=== PATIENT | male | born 1955 | race Caucasian/White ===

== ENCOUNTER 2017-08-24 00:12 | Inpatient (IN) | payer BC ==
[2017-08-24] MEDS ORDERED: Ondansetron ODT TAB* 4 MG ONE ×2 (00:18→13:11)
[2017-08-24] MEDS ORDERED: Ondansetron ODT TAB* 4 MG PO ONE (00:20)
[2017-08-24 01:22] LABS: ABS Basophils 0.1 10^3/ul (0-0.2); ABS Eosinophils 0 10^3/ul (0-0.6); ABS Lymphocytes 0.7 10^3/ul (1.0-4.8); ABS Monocytes 0.7 10^3/ul (0-0.8); ABS Neutrophils 9.7 10^3/ul (1.5-7.7); ABS Nucleated RBC 0 10^3/ul; Eosinophil % 0.3 % (0-6); Hematocrit 50 % (42-52); Hemoglobin 16.8 g/dl (14.0-18.0); Lymphocyte % 6.2 % (25-47); Mean Corpuscular HGB Conc 34 g/dl (31-36); Mean Corpuscular Hemoglobin 33 pg (27-31); Mean Corpuscular Volume 96 fL (80-94); Mean Platelet Volume 8.6 um3 (7.4-10.4); Nucleated Red Blood Cells % 0.1; Platelet Count 257 10^3/ul (150-450); Red Blood Count 5.17 10^6/ul (4.00-5.40); Red Cell Distribution Width 14 % (10.5-15); White Blood Count 11.3 10^3/ul (3.5-10.8)
[2017-08-24 01:42] LABS: EGFR Non-African American 73.2 (>60)
[2017-08-24] MEDS ORDERED: Morphine VIAL* 4 MG/ML VIAL (1 ml vial) IV ONE (02:03)
[2017-08-24] MEDS ORDERED: Ondansetron INJ* 2 MG/ML VIAL IV ONE (02:04)
[2017-08-24] MEDS ORDERED: NS 0.9% 1000 ML* 1,000 ML IV ONE (02:46)
[2017-08-24] MEDS ORDERED: fentaNYL* 50 MCG/ML 2 ML VIAL (100 MCG VIAL) IV ONE (02:46)
[2017-08-24] MEDS ORDERED: Piperacillin/Tazobac ADVAN(*) 3.375 GM in NS 0.9% 100 ML* 100 ML IVPB ONE (02:51)
[2017-08-24] MEDS ORDERED: Ondansetron 40 MG VIAL* 2 MG/ML 20 ML VIAL IV PRN ×2 (03:37→16:42)
[2017-08-24] MEDS ORDERED: NS 0.9% 1000 ML* 1,000 ML IV SCH ×2 (03:45→08:47)
[2017-08-24] MEDS ORDERED: HYDROmorphone INJ* 0.5 MG/0.5 ML SYRINGE IV SLOW PU PRN ×2 (05:03→12:13)
[2017-08-24] MEDS ORDERED: HYDROmorphone INJ* 2 MG/ML CARPUJECT SYRINGE ONE (05:12)
[2017-08-24] MEDS ORDERED: HYDROmorphone INJ* 2 MG/ML CARPUJECT SYRINGE IV SLOW PU PRN (05:31)
--- NOTE | 2017-08-24 08:35 | RAD ---
INDICATION: Right upper quadrant pain COMPARISON: CTA May 28, 2014 TECHNIQUE: Noncontrast axial source images were obtained from the hemidiaphragms to the symphysis pubis. This examination was ordered using a renal stone protocol which is performed without oral or intravenous contrast and therefore has inherent limitations when used to evaluate other intra-abdominal or intrapelvic pathology. Lung bases: The lung bases are clear. Liver: The liver is normal in size. Noncontrast imaging shows no evidence of a hepatic mass or ductal dilatation. Gallbladder: There are no calcified gallstones. There is no evidence of wall thickening or pericholecystic fluid.. Spleen: The spleen is normal in size. The noncontrast CT appearance is normal. Pancreas: There are extensive pancreatic consultations compatible with chronic pancreatitis. Adrenal glands: No masses are identified. Kidneys/Bladder: The lower elwha kidneys are markedly atrophic bilaterally. There is a transplanted kidney in the right iliac fossa. Adenopathy: There is no evidence of intraperitoneal or retroperitoneal adenopathy. Evaluation is limited without oral contrast. Fluid collections: Small amount of ascites. Vessels: There are advanced atherosclerotic changes of the aorta and iliac vessels. There is no focal aneurysm. The IVC appears normal Pelvic organs: The prostate is enlarged GI tract: Limited evaluation without oral contrast. Multiple mildly prominent loops of small bowel. There may be an early or partial small bowel obstruction. There is air within a normal caliber colon. Evidence of sigmoid resection There are scant diverticula. Soft tissues: No soft tissue abnormalities of the extraperitoneal abdomen or pelvis are identified. Osseous structures: There are no acute osseous findings. IMPRESSION: Possible early or partial small bowel obstruction. Chronic pancreatitis. Right renal transplant right iliac fossa.
[2017-08-24] MEDS: Metoprolol Tartrate IV* 1 MG/ML 5 ML VIAL IV PRN ×2 (08:54→20:00)
[2017-08-24] MEDS: methylPREDNISolone SOD 40 MG* 1 ML VIAL IV SCH ×2 (08:54→19:59)
[2017-08-24] MEDS ORDERED: TACROLIMUS PO SCH (09:15)
[2017-08-24] MEDS: HYDROmorphone INJ* 2 MG/ML CARPUJECT SYRINGE IV SLOW PU PRN ×2 (09:42→12:04)
[2017-08-24] MEDS ORDERED: ceFAZolin 1 GM VIAL(*) 2 GM in NS 0.9% 100 ML* 100 ML IVPB ONE (09:53)
[2017-08-24 09:58] LABS: ABS Basophils 0.1 10^3/ul (0-0.2); ABS Eosinophils 0 10^3/ul (0-0.6); ABS Lymphocytes 0.1 10^3/ul (1.0-4.8); ABS Monocytes 0.7 10^3/ul (0-0.8); ABS Neutrophils 11.7 10^3/ul (1.5-7.7); ABS Nucleated RBC 0 10^3/ul; Eosinophil % 0 % (0-6); Hematocrit 49 % (42-52); Hemoglobin 16.3 g/dl (14.0-18.0); Lymphocyte % 1.2 % (25-47); Mean Corpuscular HGB Conc 33 g/dl (31-36); Mean Corpuscular Hemoglobin 32 pg (27-31); Mean Corpuscular Volume 98 fL (80-94); Mean Platelet Volume 8.1 um3 (7.4-10.4); Nucleated Red Blood Cells % 0.1; Platelet Count 257 10^3/ul (150-450); Red Blood Count 5.07 10^6/ul (4.00-5.40); Red Cell Distribution Width 14 % (10.5-15); White Blood Count 12.7 10^3/ul (3.5-10.8)
--- NOTE | 2017-08-24 10:04 | CONS ---
CC: [facility]; Dr. Macho King; Dr. Johny Madison; Dr. Lorena Funk. * SURGICAL CONSULTATION REPORT: DATE OF CONSULT: 08/24/17 HISTORY OF PRESENT ILLNESS: Mr. Alvarado is a 62-year-old gentleman known to me after undergoing a Ren's procedure with subsequent reversal many years ago for perforated diverticulitis. The patient has endstage renal disease, status post transplant from his , that has been functioning well. The patient had acute onset of pain at approximately 10 p.m. last night, it woke him up from sleep. He had significant violent vomiting soon thereafter, the pain persisted and the patient presented to the emergency room. In the emergency room, the patient did undergo workup including labs and a CT scan. His pain was difficult to control and finally with narcotics on board, the patient is starting to feel more comfortable. An NG tube was placed with minimal output. The patient denies any previous similar symptoms. The pain is mostly in the lower abdomen. It is worse with movement. The patient has been urinating. His last bowel movement was yesterday. He has not had flatus since the onset of systems last night. The patient has had brief episodes of hiccups. PAST MEDICAL HISTORY: Hypertension. Endstage renal, he is status post transplant; the patient is on anti-rejection medications. Abdominal surgeries as described. MEDICATIONS: Medication list reviewed. ALLERGIES: No known drug allergies, but does not tolerate oral and IV contrast. REVIEW OF SYSTEMS: He is a nonsmoker. 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 He has fair exercise tolerance. Since receiving the kidney transplant he has been able to do much more and he is not easily fatigued. PHYSICAL EXAM: He is afebrile, blood pressure is 171/76, heart rate was in 80s for much of his hospitalization until recently, 121 heart rate measured at 7:45 today. NG tube is none. Urine output has been 400 mL since coming to the floor. He is alert and oriented x3, in mild distress. Lungs are clear at the apices. Abdomen is distended, firm at the lower abdomen and softer at the epigastrium where he is less tender. Hypoactive bowel sounds. No hernias noted. Rectal exam was not performed. Extremities within normal limits. DIAGNOSTIC STUDIES/LAB DATA: Labs show white count of 11, with left shift. Chemistry panel with an elevated lactate of 3.1, potassium 3.7, BUN and creatinine ratio of 15, normal CRP. CT scan reviewed. Images report states possible earlier or partial small bowel obstruction with multiple mildly prominent loops of small bowel. Air in the colon. Small amount of ascites, but no free air. IMPRESSION: Acute onset of abdominal pain with tenderness and distension at the lower abdomen. Differential diagnoses include small bowel obstruction secondary to adhesions versus an ischemic bowel issue. I have recommended exploratory laparotomy to the patient, going over the risks, benefits and alternative. He wishes to proceed in this fashion. We spoke about the possibility of global ischemia to the bowel and inability to do anything. The patient understands this. His questions were answered. He also understands that it would be likely my partner doing the procedure. I discussed the case with Nephrology, Dr. King, who recommended giving his oral anti-rejection medication now and clamping the NG tube at that time for 2 hours. The case was discussed Anesthesiology. The patient is to remain on IV fluids. We will hold off on Boone catheter until we are in the operating room. He will get preoperative antibiotics. [id number]/[facility] #: [id number] MTDD
[2017-08-24 10:13] LABS: EGFR Non-African American 81.3 (>60)
[2017-08-24] MEDS ORDERED: ceFAZolin 2 GM PREMIX (*) 2 GM/50 ML BAG IVPB ONE (10:30)
[2017-08-24 10:32] LABS: Urine Appearance Clear; Urine Blood 1+ (Negative); Urine Color Straw; Urine Ketones 1+ (Negative); Urine Protein Negative (Negative); Urine Specific Gravity 1.015 (1.010-1.030); Urine Urobilinogen Negative (Negative)
--- NOTE | 2017-08-24 10:37 | HP ---
CC: Dr. Funk; Dr. Montenegro * ADMISSION HISTORY AND PHYSICAL: DATE OF ADMISSION: 08/24/17 CHIEF COMPLAINT: Abdominal pain. HISTORY OF PRESENT ILLNESS: Mr. Alvarado is a 62-year-old man with history of bowel perforation and colectomy in 2011 who developed 10/10 periumbilical pain accompanied by vomiting at around 10 o'clock evening prior to admission. He states, the pain is constant and radiates down to his right and left groin. The patient has not had similar problems in the past. He has no history of small bowel obstruction. The patient denies any fevers, but he has felt hot and clammy off and on. The patient denies any diarrhea. 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 The patient received a renal transplant in 2014. Also has a history of diverticulitis and history of pancreatitis. He has hypertension as well and BPH. PAST SURGICAL HISTORY: Colectomy in 2011 and renal transplant in 2014. MEDICATIONS: On admission: 1. Amlodipine 10 mg p.o. daily. 2. Aspirin 81 mg p.o. daily. 3. Hydralazine 50 mg p.o. t.i.d. 4. Toprol-XL 150 mg p.o. b.i.d. 5. Mycophenolate mofetil 1000 mg p.o. b.i.d. 6. Protonix 40 mg p.o. q.a.m. 7. Prednisone 5 mg p.o. daily. 8. Simvastatin 5 mg p.o. q.p.m. 9. Tacrolimus 5 mg p.o. b.i.d. 10. Flomax 0.4 mg p.o. daily. ALLERGIES: IODINATED CONTRAST. FAMILY HISTORY: Notable for mother of CHF, father and brother both of prostate cancer. He has a twin brother who of a motor vehicle accident. 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 He is . He has 1 child from a previous marriage. His healthcare proxy is his current partner Zaria. He never smoked, alcohol, or drug use. REVIEW OF SYSTEMS: The patient denies any measured fevers. The patient denies any chest pain or palpitations. The patient denies any shortness of breath or cough. The patient denies any diarrhea, but has severe abdominal pain. Remainder of a 14-point review of systems is negative other than mentioned in HPI. PHYSICAL EXAMINATION GENERAL: He is an older man, lying in bed, looking very uncomfortable. No respiratory distress. VITAL SIGNS: Temperature is 35.5, pulse is 90, respirations 17, blood pressure is 156/59 up to 186/70, O2 sat is 100%. HEENT: Head is normocephalic and atraumatic. Sclerae anicteric. Pupils are equal, round, reactive to light and accommodation. Oropharynx is moist. No lesions. NECK: No JVD, no carotid bruits, no thyromegaly. LUNGS: Clear to auscultation and percussion bilaterally. HEART: Tachycardic. Regular with 2/6 systolic murmur that radiates to the axilla. ABDOMEN: Firm in the periumbilical region with some rebound and distention. There are absent bowel sounds throughout. No palpable masses. No hernias. NEUROLOGIC: Cranial nerves II through XII are intact. Motor strength is 4+/5 throughout. He is alert and oriented x3. SKIN: No lesions. No rashes. LABORATORY DATA: Sodium 141, potassium 3.7, chloride 104, bicarb 21, BUN 16, creatinine 1.03, glucose 265, calcium is 10.7. Lactic acid is 3.1. White count is 11.3, hemoglobin 16.8, hematocrit 40%, platelets are 257. CT abdomen and pelvis shows small bowel obstruction, a transition point present. There is also renal transplant in the right pelvis. ASSESSMENT AND PLAN: 1. A 62-year-old man with his first occurrence of small bowel obstruction likely related to scarring and adhesions from previous colectomy. At this point , the patient will be admitted to the hospital and placed on bowel rest, NG tube , and antiemetics. I am holding all of his outpatient oral medications and keeping him n.p.o. with an NG tube. I have discussed the case with Dr. Montenegro, he will be seeing the patient today for consultation. The patient does seem to have particularly distended, tender, focal obstruction and certainly may need to go to the operating room in the next 24 hours. 2. Hypertension. This has become significant but may be elevated by pain. We will give him IV metoprolol and monitor him on telemetry here on the floor. Other oral medications are held. 3. The patient has immunosuppression and this increases the risk of infection but he does not currently have any clear signs of infection. I will give him some Solu- Medrol to replace his oral prednisone that he is missing. We will need to get him back on tacrolimus and mycophenolate as soon as we can after this episode. 4. Code status is full. 5. DVT prophylaxis will be with sequential compression devices, as heparin products could delay even surgical intervention. [id number]/[facility] #: [id number] DARWIN
--- NOTE | 2017-08-24 10:39 | RAD ---
INDICATION: Evaluate for pneumonia. Small bowel obstruction COMPARISON: Chest x-ray February 06, 2013 TECHNIQUE: PA and lateral dual-energy views were obtained. FINDINGS: Bones/Soft Tissues: There are no acute bony findings. There is a nasogastric tube projected over the body the stomach. Cardiomediastinal: The cardiomediastinal silhouette is normal. Lungs: There are no infiltrates. Pleura: There are no pleural effusions. Other: None IMPRESSION: NO ACTIVE DISEASE.
[2017-08-24] MEDS: Mycophenolate Mofetil CAP(*) 250 MG PO SCH ×2 (11:09→20:37)
[2017-08-24] MEDS: Tacrolimus CAP(*) 1 MG PO SCH ×2 (11:09→20:37)
[2017-08-24] MEDS ORDERED: Dextrose 50% Syringe 50 ML* 25 GM/50 ML SYRINGE IV PUSH PRN (11:41)
[2017-08-24] MEDS ORDERED: Insulin LISPRO* 1 UNITS UNIT SUBCUT ONE (12:12)
[2017-08-24] MEDS: Insulin LISPRO* 1 UNITS UNIT SUBCUT SCH ×3 (12:16→23:53)
--- NOTE | 2017-08-24 12:50 | PN ---
Cardiology Progress Note Date of Service: 08/24/17 - CC: abdominal pain, asked to see patient for ECG pre op UGENT Cardiology Consult Pt with acute onset suprapubic/lower abdominal pain 10 PM last night. Complex PMHx including Wegners, ROE, pancreatitis, RF to transplant (2014), DM, hx perferated intestine 2012 with colostomy reversal. The patient was scheduled for surgury at 1 PM today. Pre op ECG just done, showed J point ST elevation across the precordial leads. Dextrose (D50w Syringe 50 Ml*) 12.5 gm IV PUSH .FOR FS < 60 - SS PRN PRN Reason: FS < 60 Hydromorphone HCl (Dilaudid Inj*) 0.5 mg IV SLOW PU Q1H PRN PRN Reason: PAIN Sodium Chloride (Ns 0.9% 1000 Ml*) 1,000 mls @ 150 mls/hr IV PER RATE [facility] Last Admin: 08/24/17 09:00 Dose: 150 mls/hr Insulin Human Lispro (Humalog*) 0 units SUBCUT Q6HR [facility]; Protocol Last Admin: 08/24/17 12:16 Dose: 4 units Methylprednisolone Sodium Succinate (Solu-Medrol 40 Mg) 20 mg IV BID [facility] Last Admin: 08/24/17 08:54 Dose: 20 mg Metoprolol Tartrate (Lopressor Iv*) 5 mg IV Q6H PRN PRN Reason: BLOOD PRESSURE Last Admin: 08/24/17 08:54 Dose: 5 mg Mycophenolate Mofetil (Cellcept Cap(*)) 1,000 mg PO BID [facility] Last Admin: 08/24/17 11:09 Dose: 1,000 mg Ondansetron HCl (Zofran 40 Mg Vial*) 4 mg IV Q6H PRN PRN Reason: NAUSEA Tacrolimus (Prograf Cap(*)) 1 mg PO BID [facility] Last Admin: 08/24/17 11:09 Dose: 1 mg EXAM: Temp Pulse Resp BP Pulse Ox 97.5 F 117 18 164/83 98 08/24/17 07:45 08/24/17 10:07 08/24/17 12:15 08/24/17 10:07 08/24/17 10:07 Appears uncomfortable, lying 20 degrees, no tachypnea. AAO x3, follows comands. No gross neurological abnormalities. HEENT: mucous membranes moist, no thyromegally, no increase in JVP. Skin: warm, dry, no cyanosis, no rashes. Lungs clear anteriorly and laterally. Cor: S1S2 regular, tachycardia, soft SM c/w flow murmur heard Abd: mildly distended, no bowel sounds heard by me. Ext: No edema ECG today: Sinus tachycardia, J point ST elevtion precordial leads, c/w office ECG of May 05, 2014, tachycardia new, ST's more exaggerated but not new. 2015 myoview stress test: normal perfusion, low risk ([facility]) 2014 echo: mild to moderate LVH, EF 55-60%, AV sclerosis, mild MR, trace TR, PA pressure 32 mmHg (normal) (Dr Norman interpreted). Laboratory Results - last 24 hr 08/24/17 08/24/17 08/24/17 01:02 01:02 01:02 WBC 11.3 H RBC 5.17 Hgb 16.8 Hct 50 MCV 96 H MCH 33 H MCHC 34 RDW 14 Plt Count 257 MPV 8.6 Neut % (Auto) 86.6 H Lymph % (Auto) 6.2 L [place] % (Auto) 5.8 Eos % (Auto) 0.3 Baso % (Auto) 1.1 Absolute Neuts (auto) 9.7 H Absolute Lymphs (auto) 0.7 L Absolute Monos (auto) 0.7 Absolute Eos (auto) 0 Absolute Basos (auto) 0.1 Absolute Nucleated RBC 0 Nucleated RBC % 0.1 Sodium 141 Potassium 3.7 Chloride 104 Carbon Dioxide 21 L Anion Gap 16 H BUN 16 Creatinine 1.03 Est GFR ( Amer) 88.5 Est GFR (Non-Af Amer) 73.2 BUN/Creatinine Ratio 15.5 Glucose 265 H Lactic Acid 3.1 H* Calcium 10.7 H Total Bilirubin 0.60 AST 26 ALT 31 Alkaline Phosphatase 105 H C-Reactive Protein < 1.00 Total Protein 6.6 Albumin 4.6 Globulin 2.0 Albumin/Globulin Ratio 2.3 Lipase 36 Urine Color Urine Appearance Urine pH Ur Specific [place] Urine Protein Urine Ketones Urine Blood Urine Nitrate Urine Bilirubin Urine Urobilinogen Ur Leukocyte Esterase Urine WBC (Auto) Urine RBC (Auto) Urine Bacteria Urine Glucose 08/24/17 08/24/17 08/24/17 07:00 09:52 09:52 WBC 12.7 H RBC 5.07 Hgb 16.3 Hct 49 MCV 98 H MCH 32 H MCHC 33 RDW 14 Plt Count 257 MPV 8.1 Neut % (Auto) 92.5 H Lymph % (Auto) 1.2 L [place] % (Auto) 5.8 Eos % (Auto) 0 Baso % (Auto) 0.5 Absolute Neuts (auto) 11.7 H Absolute Lymphs (auto) 0.1 L Absolute Monos (auto) 0.7 Absolute Eos (auto) 0 Absolute Basos (auto) 0.1 Absolute Nucleated RBC 0 Nucleated RBC % 0.1 Sodium Potassium Chloride Carbon Dioxide Anion Gap BUN Creatinine Est GFR ( Amer) Est GFR (Non-Af Amer) BUN/Creatinine Ratio Glucose Lactic Acid 3.3 H* Calcium Total Bilirubin AST ALT Alkaline Phosphatase C-Reactive Protein Total Protein Albumin Globulin Albumin/Globulin Ratio Lipase Urine Color Straw Urine Appearance Clear Urine pH 5.0 Ur Specific [place] 1.015 Urine Protein Negative Urine Ketones 1+ A Urine Blood 1+ A Urine Nitrate Negative Urine Bilirubin Negative Urine Urobilinogen Negative Ur Leukocyte Esterase Negative Urine WBC (Auto) Trace(0-5/hpf) Urine RBC (Auto) 1+(3-5/hpf) A Urine Bacteria Absent Urine Glucose 3+(>=500 mg/dl) A 08/24/17 09:52 WBC RBC Hgb Hct MCV MCH MCHC RDW Plt Count MPV Neut % (Auto) Lymph % (Auto) [place] % (Auto) Eos % (Auto) Baso % (Auto) Absolute Neuts (auto) Absolute Lymphs (auto) Absolute Monos (auto) Absolute Eos (auto) Absolute Basos (auto) Absolute Nucleated RBC Nucleated RBC % Sodium 142 Potassium 3.8 Chloride 110 Carbon Dioxide 21 L Anion Gap 11 BUN 15 Creatinine 0.94 Est GFR ( Amer) 98.4 Est GFR (Non-Af Amer) 81.3 BUN/Creatinine Ratio 16.0 Glucose 305 H Lactic Acid Calcium 9.8 Total Bilirubin AST ALT Alkaline Phosphatase C-Reactive Protein 7.29 Total Protein Albumin Globulin Albumin/Globulin Ratio Lipase Urine Color Urine Appearance Urine pH Ur Specific [place] Urine Protein Urine Ketones Urine Blood Urine Nitrate Urine Bilirubin Urine Urobilinogen Ur Leukocyte Esterase Urine WBC (Auto) Urine RBC (Auto) Urine Bacteria Urine Glucose Trop # 1 = 0.05. CXR: NAD CT abdoman: c/w SBO A/P 62 yo admitted with acute abdominal process and ECG with ST changes. In reviewing his prior ECG's I don't feel the ECG represents an acute ischemia process. Mild/borderline bump in troponin after 15 hours of pain most consistent with demand type ischemia not large vessel CAD. I recommend proceeding to surgery w/o additional cardiac testing. Stabilizing abdominal process will decrease the stress on the heart. Option of luna operative beta blockers, consider post op if BP is still elevated.
[2017-08-24] MEDS ORDERED: KETAMINE HCL* 50 MG/ML 10 ML VIAL ONE (13:11)
[2017-08-24] MEDS ORDERED: Dexamethasone IV* 4 MG/ML 1 ML (4 MG) ONE (13:11)
[2017-08-24] MEDS ORDERED: Lidocaine 2% PF * 5 ML VIAL ONE (13:11)
[2017-08-24] MEDS ORDERED: Phenylephrine INJ* 10 MG/ML 1 ML VIAL (10 MG) ONE (13:11)
[2017-08-24] MEDS ORDERED: Cisatracurium* 2 MG/ML MDV 5 ML ONE (13:11)
[2017-08-24] MEDS ORDERED: Propofol* 10 MG/ML 20 ML BTL IV PUSH ONE (13:11)
[2017-08-24] MEDS ORDERED: fentaNYL* 50 MCG/ML 5 ML VIAL (250 MCG VIAL) ONE (13:11)
[2017-08-24] MEDS ORDERED: Midazolam* 1 MG/ML 5 ML VIAL (5 MG) ONE ×2 (13:12→16:40)
[2017-08-24] MEDS ORDERED: ceFAZolin 2 GM PREMIX (*) 0 GM/0 ML BAG IVPB ONE (13:13)
--- NOTE | 2017-08-24 13:58 | PN ---
Hospitalist Progress Note Date of Service: 08/24/17
[2017-08-24] MEDS ORDERED: Succinylcholine* 20 MG/ML 10 ML VIAL ONE (14:14)
--- NOTE | 2017-08-24 14:29 | PN ---
Subjective Date of Service: 08/24/17 Interval History: Pt seen and examined. Meds and labs reviewed. Earlier this AM, RN informed me pt has ST elevation in his most recent EKG. Reviewed previous EKG and informed staff that I will have Dr. Butler evaluate pt given ST segment J point elevation seems to be more exaggerated than usual. Cardiac enzymes also ordered. First set shows mild elevation thought to be due to demand ischemia. at bedside visibly upset and wonders why another doctor will need to see her . Situation explained to who was subsequently re-assured. Pt also was found to have elevated FS. ROS: Although and pt had an unremarkable ROS during my pre-rounds, visibly agitated when CAT call transpired and mentioned that he has abd pain and requires pain meds like clock-work. Denied PICKENS/dizziness, F/C, N/V, CP, SOB, increased cough, sputum production, diarrhea, constipation, dysuria, throat pain, and new skin lesions. The rest of the 14 point ROS are unremarkable. PHYSICAL EXAM: GEN APPEARANCE: Awake, not in acute distress HEENT: NC/AT, PERRLA, moist oral mucosa, (-) throat erythema NECK: Soft, supple, (-) cervical LAD, (-)JVD HEART: S1S2 WNL, RRR, No MRG CHEST: CTA, BL, GAE, No W/R/R ABD: Soft, ND/tender 4xQ, NABS 4x Q EXT: No C/C/E SKIN: Warm to touch PSYCH: No active psychosis, hallucinations, depression, SI/HI Objective Active Medications: Dextrose (D50w Syringe 50 Ml*) 12.5 gm IV PUSH .FOR FS < 60 - SS PRN PRN Reason: FS < 60 Hydromorphone HCl (Dilaudid Inj*) 0.5 mg IV SLOW PU Q1H PRN PRN Reason: PAIN Sodium Chloride (Ns 0.9% 1000 Ml*) 1,000 mls @ 150 mls/hr IV PER RATE [facility] Last Admin: 08/24/17 09:00 Dose: 150 mls/hr Insulin Human Lispro (Humalog*) 0 units SUBCUT Q6HR [facility]; Protocol Last Admin: 08/24/17 12:16 Dose: 4 units Methylprednisolone Sodium Succinate (Solu-Medrol 40 Mg) 20 mg IV BID [facility] Last Admin: 08/24/17 08:54 Dose: 20 mg Metoprolol Tartrate (Lopressor Iv*) 5 mg IV Q6H PRN PRN Reason: BLOOD PRESSURE Last Admin: 08/24/17 08:54 Dose: 5 mg Mycophenolate Mofetil (Cellcept Cap(*)) 1,000 mg PO BID [facility] Last Admin: 08/24/17 11:09 Dose: 1,000 mg Ondansetron HCl (Zofran 40 Mg Vial*) 4 mg IV Q6H PRN PRN Reason: NAUSEA Tacrolimus (Prograf Cap(*)) 1 mg PO BID [facility] Last Admin: 08/24/17 11:09 Dose: 1 mg Vital Signs - 8 hr 08/24/17 08/24/17 08/24/17 07:02 07:34 07:45 Temperature 97.5 F Pulse Rate 121 Respiratory 16 18 17 Rate Blood Pressure 171/76 (mmHg) O2 Sat by Pulse 95 Oximetry 08/24/17 08/24/17 08/24/17 08:00 09:42 10:07 Temperature Pulse Rate 117 Respiratory 18 18 18 Rate Blood Pressure 164/83 (mmHg) O2 Sat by Pulse 98 Oximetry 08/24/17 08/24/17 08/24/17 10:23 12:04 12:15 Temperature Pulse Rate Respiratory 16 18 18 Rate Blood Pressure (mmHg) O2 Sat by Pulse Oximetry Oxygen Devices in Use Now: None Result Diagrams: 08/24/17 09:52 08/24/17 09:52 Assess/Plan/Problems-Billing Assessment: - Patient Problems (1) Partial small bowel obstruction Current Visit: Yes Status: Acute Code(s): K56.600 - PARTIAL INTESTINAL OBSTRUCTION, UNSPECIFIED TO CAUSE SNOMED Code(s): 407295165 Comment: -Continue PRN pain meds, however, will add 0.5 mg IV PRN of Dilaudid for breakthroughs, with appropriate holding orders -Per Dr. Brooks, he is concerned about possible volvulus of intestine that may cut off blood supply, and plans to do an exploratory laparotomy -Continue Zosyn -CXR shows NAD -Blood cultures ordered, however, this is after pt had already been given one dose of Zosyn ordered (2) Elevated troponin level Current Visit: Yes Status: Acute Code(s): R74.8 - ABNORMAL LEVELS OF OTHER SERUM ENZYMES SNOMED Code(s): 883091502 Comment: -Likely due to demand ischemia possibly due to above? -Continue to trend troponins -Appreciate Dr. Murphy input and will defer (3) History of renal transplant Current Visit: Yes Status: Acute Comment: -Continue Solumedrol , Cellcept, and Prograf (4) DVT prophylaxis Current Visit: Yes Status: Acute Code(s): TFG8601 - SNOMED Code(s): 095860239 Comment: -Will defer with Surgical team as to preference as well Status and Disposition: As above
[2017-08-24] MEDS ORDERED: VASOPRESSIN 20 UNITS/ML 1 ML VIAL ONE (14:51)
[2017-08-24] MEDS ORDERED: Acetaminophen IV 1GM/100ML * 1,000 MG/100 ML VIAL IVPB ONE (15:22)
[2017-08-24] MEDS ORDERED: Ondansetron INJ* 2 MG/ML VIAL IV PRN (15:22)
[2017-08-24] MEDS ORDERED: Naloxone* 0.4 MG/ML 1 ML VIAL IV PRN (15:22)
[2017-08-24] MEDS ORDERED: HYDROmorphone INJ* 1 MG/ML CARPUJECT SYRINGE IV PRN (15:22)
[2017-08-24] MEDS ORDERED: fentaNYL* 50 MCG/ML 2 ML VIAL (100 MCG VIAL) IV PRN (15:22)
[2017-08-24] MEDS ORDERED: fentaNYL* 50 MCG/ML 2 ML VIAL (100 MCG VIAL) ONE (15:42)
[2017-08-24] MEDS ORDERED: Glycopyrrolate IV* 0.2 MG/ML 1 ML VIAL ONE (15:59)
[2017-08-24] MEDS ORDERED: Neostigmine Methylsulfate* 2 MG/2 ML SYRINGE ONE (15:59)
[2017-08-24] MEDS ORDERED: HYDROmorphone INJ* 0.5 MG/0.5 ML SYRINGE ONE (16:03)
[2017-08-24] MEDS ORDERED: Acetaminophen IV 1GM/100ML * 100 ML ONE (16:35)
[2017-08-24] MEDS ORDERED: Zosyn per Pharmacy* NOTE FOLLOW UP SCH (17:00)
[2017-08-24] MEDS: NS 0.9% 1000 ML* 1,000 ML IV SCH (19:47)
--- NOTE | 2017-08-24 19:54 | OP ---
CC: Drew Taylor MD; Dr. Funk; Dr. Douglas OPERATIVE REPORT: DATE OF OPERATION: 08/24/17 DATE OF : 55 SURGEON: Drew Taylor MD SAFE DEPOSIT CLERK: None. ANESTHESIOLOGIST: Dr. Gautam. ANESTHESIA: General anesthetic. PRE-OP DIAGNOSIS: Small bowel obstruction due to adhesions. POST-OP DIAGNOSIS: Small bowel obstruction due to adhesions with an area of necrotic bowel. OPERATIVE PROCEDURE: Laparotomy with lysis of adhesions, resection of necrotic portion of ileum. DESCRIPTION OF PROCEDURE: The patient was supine on the operating room table. After adequate general anesthetic, compression stockings, Noris Hugger warmer, and intravenous antibiotics, the abdomen was prepped with antiseptic, draped in a sterile fashion. A lower midline incision was created. This wa s eventually extended to above the umbilicus and the abdomen was entered. Omental adhesions were pre tty dense in this area. At this point, I just entered through the omentum and there was dark fluid a nd necrotic bowel readily evident, therefore the incision was enlarged and approximately 40 to 50 cm of ileum was necrotic. There was a band of omentum down to the retroperitoneum, which seemed to be t he torsion point for this. This was released and the bowel was delivered into the operative field an d the distal margin was about 15 to 20 cm from the previous ileoileal anastomosis. In each case, the bowel was divided with a SANDRA stapler and the anastomosis was created using a SANDRA stapler. The entero aniket was closed with a TA-60 stapler, blue cartridge, and this was reinforced with silk sutures. The mesentery was closed with Vicryl. The bowel was returned to the abdominal cavity. Irrigation was c arried out with warm saline. Free fluid was suctioned out. The bowel was put back into natural posi tion. Everything was in good condition. Closure was accomplished using running #1 Vicryl, followed by irrigation of the adipose and surgical clips for the skin, followed by sterile dressing. He cris ated the procedure well, was brought to Recovery in stable condition. There were no complications. No drains. Pathologic specimen was portion of small bowel. Sponge and instrument counts correct. E stimated blood loss 200 mL. [id number]/[facility] #: [id number]
[2017-08-24] MEDS ORDERED: ZOSYN 3.375 GM x ONE DOSE over 30 miuntes IVPB ×2 (20:00)
[2017-08-24] MEDS: ZOSYN 3.375 GM Q8H per EXTENDED INFUSION IVPB SCH ×2 (23:54)
--- NOTE | 2017-08-24 23:59 | ED ---
Frank Luna Tariq, scribed for Rodrigo Villafana MD on 08/24/17 at 0330 . Abdominal Pain/Male - HPI Summary HPI Summary: A 62 y/o male presents to ED c/o severe abdominal pain. As per , abdominal pain started around 1500. Initially, it was stomach cramps but became more severe and painful. To alleviate Sx, pt took pepto bismol, however it didn't help. Around 1200 the pain became severe. Pt denies passing gas, CP, SOB. Pt has chills, skin is very cold. Currently, pain is 10/10, morphine helps slightly. PMHx of perforated colon twice (8 years ago), kidney recipient. No allergies to medications. 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 - Onset/Duration: Sudden Onset, Lasting Hours, Still Present, Worse Since - 3PM Timing: Constant, Lasting Hours Severity Initially: Mild Severity Currently: Severe Pain Intensity: 10 Pain Scale Used: 0-10 Numeric Location: Diffuse Aggravating Factor(s): Nothing Alleviating Factor(s): Nothing Associated Signs And Symptoms: Positive: Other - Chills, Cold skin - Allergies/Home Medications Allergies/Adverse Reactions: Allergies Allergy/AdvReac Type Severity Reaction Status Date / Time Iodinated Contrast- Oral and AdvReac Severe kidney Verified 08/24/17 02:20 IV Dye failure PMH/Surg Hx/FS Hx/Imm Hx Endocrine/Hematology History: Denies: Hx Anticoagulant Therapy, Hx Blood Disorders, Hx Blood Transfusions, Hx Bone Marrow Disease, Hx Diabetes, Hx Systemic Lupus Erythematosus, Hx Sickle Cell Disease, Hx Thyroid Disease, Hx Anemia, Hx Unexplained Bleeding, Other Endocrine/Hematological Disorders Cardiovascular History: Reports: Hx Hypertension Denies: Hx Aneurysm, Hx Angina, Hx Angioplasty, Hx Auto Implanted Cardiovert Defib, Hx Cardiac Arrest, Hx Cardiomegaly, Hx Congenital Heart Disease, Hx Congestive Heart Failure, Hx Coronary Artery Disease, Hx Deep Vein Thrombosis, Hx Hypercholesterolemia, Hx Hypotension, Hx Myocardial Infarction, Hx Pacemaker/ ICD, Hx Peripheral Vascular Disease, Hx Rheumatic Fever, Hx Syncope, Hx Valvular Heart Disease, Other Cardiovascular Problems/Disorders Respiratory History: Denies: Hx Asthma, Hx Chronic Bronchitis, Hx Chronic Obstructive Pulmonary Disease (COPD), Hx Cystic Fibrosis, Hx Lung Cancer, Hx Pleural Effusion, Hx Pneumonia, Hx Pulmonary Edema, Hx Pulmonary Embolism, Hx Seasonal Allergies, Hx Sleep Apnea, Other Respiratory Problems/Disorders GI History: Reports: Hx Diverticulosis, Hx Gastroesophageal Reflux Disease, Hx Ileostomy - perforated bowel 2011, Other GI Disorders - abdominal pain and distention X 7 days History: Reports: Hx Acute Renal Failure, Hx Renal Disease Denies: Hx Benign Prostatic Hyperplasia, Hx Chronic Renal Failure, Hx Dialysis, Hx Kidney Infection, Hx Kidney Stones, Other Problems/Disorders Musculoskeletal History: Denies: Hx Arthritis, Hx Back Problems, Hx Bursitis, Hx Congenital Bone Abnormalities, Hx Fibromyalgia, Hx Gout, Hx Orthopedic Injury, Hx Osteoporosis, Hx Scoliosis, Hx Tendonitis, Other Musculoskeletal History Sensory History: Denies: Hx Cataracts, Hx Contacts or Glasses - PT WEARS GLASSES, Hx Eye Injury, Hx Eye Prosthesis, Hx Glaucoma, Hx Macular Degeneration, Hx Vision Problem, Hx Deafness, Hx Hearing Aid, Hx Hearing Problem, Other Sensory Impairments Opthamlomology History: Denies: Hx Cataracts, Hx Contacts or Glasses - PT WEARS GLASSES, Hx Eye Injury, Hx Eye Prosthesis, Hx Glaucoma, Hx Macular Degeneration, Hx Vision Problem, Other Sensory Impairments Neurological History: Denies: Hx Dementia, Hx Developmental Delay, Hx Headaches, Hx Migraine, Hx Seizures, Hx Spinal Cord Injury, Hx Transient Ischemic Attacks (TIA), Other Neuro Impairments/Disorders Psychiatric History: Denies: Hx Anxiety, Hx Attention Deficit Hyperactivity Disorder, Hx Eating Disorder, Hx Depression, Hx Panic Disorder, Hx Post Traumatic Stress Disorder, Hx Inpatient Treatment, Hx Community Mental Health Tx, Hx Schizophrenia, Hx Bipolar Disorder, Hx Suicide Attempt, Hx Substance Abuse, Other Psychiatric Issues/Disorders - Cancer History Hx Chemotherapy: Yes Hx Radiation Therapy: No - Surgical History Surgery Procedure, Year, and Place: colostomy 2011, colostomy reversal March 2012, 2 fistula surgeries Hx Anesthesia Reactions: No - Immunization History Date of Tetanus Vaccine: unk Date of Influenza Vaccine: none Infectious Disease History: No Infectious Disease History: Reports: Hx Clostridium Difficile - 3-4 yrs ago, Hx Shingles - feb 2012 Denies: Hx Hepatitis, Hx Human Immunodeficiency Virus (HIV), Hx Tuberculosis , Traveled Outside the [place] in Last 30 Days - Family History Known Family History: Negative: Diabetes - Social History Alcohol Use: None Substance Use Type: Reports: None Smoking Status (MU): Former Smoker Type: Cigarettes Amount Used/How Often: 1 PPD Length of Time of Smoking/Using Tobacco: 40 YEARS Have You Smoked in the Last Year: No Review of Systems Positive: Chills. Negative: Fever Negative: Chest Pain Negative: Shortness Of Breath Positive: Abdominal Pain - Diffuse Positive: Other - Cold skin All Other Systems Reviewed And Are Negative: Yes Physical Exam - Summary Physical Exam Summary: GENERAL: Patient is a well developed and nourished male who is lying comfortable in the stretcher. Patient is not in any acute respiratory distress. Rigors cold. HEAD AND FACE: Normocephalic EYES: PERRLA, EOMI x 2. EARS: Hearing grossly intact. MOUTH: Oropharynx within normal limits. NECK: Supple, trachea is midline, no adenopathy, no JVD, no carotid bruit. CHEST: Symmetric, no tenderness at palpation LUNGS: Clear to auscultation bilaterally. No wheezing or crackles. CVS: Regular rate and rhythm, S1 and S2 present, no murmurs or gallops appreciated. ABDOMEN: Tenderness to mild palpation EXTREMITIES: Full ROM in all major joints, no edema, no cyanosis or clubbing. NEURO: Alert and oriented x 3. No acute neurological deficits. Speech is normal and follows commands. SKIN: Dry and warm Neuro exam extended: Cranial nerves II-XII grossly intact, no dysmetria finger to nose, nml heel to greenwood Triage Information Reviewed: Yes Vital Signs On Initial Exam: Initial Vitals Temp Pulse Resp BP Pulse Ox 95.9 F 90 17 156/59 100 08/24/17 00:13 08/24/17 00:13 08/24/17 00:13 08/24/17 00:13 08/24/17 00:13 Vital Signs Reviewed: Yes Diagnostics - Vital Signs Vital Signs Temp Pulse Resp BP Pulse Ox 08/24/17 03:26 18 08/24/17 02:19 18 08/24/17 02:00 85 100 08/24/17 01:58 85 100 08/24/17 01:57 84 170/77 100 08/24/17 00:13 95.9 F 90 17 156/59 100 - Laboratory Lab Results: Lab Results 08/24/17 08/24/17 08/24/17 Range/Units 01:02 01:02 01:02 WBC 11.3 H (3.5-10.8) 10^3/ul RBC 5.17 (4.00-5.40) 10^6/ul Hgb 16.8 (14.0-18.0) g/dl Hct 50 (42-52) % MCV 96 H (80-94) fL MCH 33 H (27-31) pg MCHC 34 (31-36) g/dl RDW 14 (10.5-15) % Plt Count 257 (150-450) 10^3/ul MPV 8.6 (7.4-10.4) um3 Neut % (Auto) 86.6 H (38-83) % Lymph % (Auto) 6.2 L (25-47) % [place] % (Auto) 5.8 (0-7) % Eos % (Auto) 0.3 (0-6) % Baso % (Auto) 1.1 (0-2) % Absolute Neuts (auto) 9.7 H (1.5-7.7) 10^3/ul Absolute Lymphs (auto) 0.7 L (1.0-4.8) 10^3/ul Absolute Monos (auto) 0.7 (0-0.8) 10^3/ul Absolute Eos (auto) 0 (0-0.6) 10^3/ul Absolute Basos (auto) 0.1 (0-0.2) 10^3/ul Absolute Nucleated RBC 0 10^3/ul Nucleated RBC % 0.1 Sodium 141 (135-145) mmol/L Potassium 3.7 (3.5-5.0) mmol/L Chloride 104 (101-111) mmol/L Carbon Dioxide 21 L (22-32) mmol/L Anion Gap 16 H (2-11) mmol/L BUN 16 (6-24) mg/dL Creatinine 1.03 (0.67-1.17) mg/dL Est GFR ( Amer) 88.5 (>60) Est GFR (Non-Af Amer) 73.2 (>60) BUN/Creatinine Ratio 15.5 (8-20) Glucose 265 H (70-100) mg/dL Lactic Acid 3.1 H* (0.5-2.0) mmol/L Calcium 10.7 H (8.6-10.3) mg/dL Total Bilirubin 0.60 (0.2-1.0) mg/dL AST 26 (13-39) U/L ALT 31 (7-52) U/L Alkaline Phosphatase 105 H (34-104) U/L C-Reactive Protein < 1.00 (<8.01) mg/L Total Protein 6.6 (6.4-8.9) g/dL Albumin 4.6 (3.2-5.2) g/dL Globulin 2.0 (2-4) g/dL Albumin/Globulin Ratio 2.3 (1-3) Lipase 36 (11.0-82.0) U/L Result Diagrams: 08/24/17 09:52 08/24/17 09:52 Lab Statement: Any lab studies that have been ordered have been reviewed, and results considered in the medical decision making process. - CT CT A/P CT Interpretation Completed By: Radiologist - SMALL BOWEL OBSTRUCTION. ED PHYSICIAN REVIEWED THIS RADIOLOGY REPORT. Abdominal Pain Fem Course/Dx - Course Course Of Treatment: 62-year-old male with a history of colonic perforation who presents to the emergency room with an acute onset of abdominal pain associated with fevers, chills. Patient is less prophylactically covered with IV antibiotics, IV fluids. His workup is remarkable for SBO and leukocytosis. I did consult Dr. Montenegro of general surgery who recommended admission to the hospitalist and he'll see patient first thing in the morning. An NG tube was ordered to be placed by nurse. Patient hemodynamically stable upon admission. - Diagnoses Provider Diagnoses: SBO (small bowel obstruction) Discharge - Sign-Out/Discharge Documenting (check all that apply): Discharge/Admit/Transfer - Admit - Discharge Plan Condition: Stable Disposition: ADMITTED TO [facility] - Billing Disposition and Condition Condition: STABLE Disposition: Ad[facility] to [facility] The documentation as recorded by the Frank foy Tariq accurately reflects the service I personally performed and the decisions made by me, Rodrigo Villafana MD.
[2017-08-25] MEDS: Metoprolol Tartrate IV* 1 MG/ML 5 ML VIAL IV PRN ×2 (01:32→07:55)
[2017-08-25] MEDS: HYDROmorphone INJ* 2 MG/ML CARPUJECT SYRINGE IV SLOW PU PRN ×4 (01:45→20:50)
[2017-08-25 04:51] LABS: ABS Basophils 0 10^3/ul (0-0.2); ABS Eosinophils 0 10^3/ul (0-0.6); ABS Lymphocytes 0.2 10^3/ul (1.0-4.8); ABS Monocytes 0.5 10^3/ul (0-0.8); ABS Neutrophils 9.6 10^3/ul (1.5-7.7); ABS Nucleated RBC 0 10^3/ul; Eosinophil % 0 % (0-6); Hematocrit 42 % (42-52); Lymphocyte % 1.5 % (25-47); Mean Corpuscular HGB Conc 34 g/dl (31-36); Mean Corpuscular Hemoglobin 33 pg (27-31); Mean Corpuscular Volume 97 fL (80-94); Mean Platelet Volume 8.4 um3 (7.4-10.4); Nucleated Red Blood Cells % 0; Platelet Count 178 10^3/ul (150-450); Red Blood Count 4.28 10^6/ul (4.00-5.40); Red Cell Distribution Width 15 % (10.5-15); White Blood Count 10.3 10^3/ul (3.5-10.8)
[2017-08-25 06:02] LABS: EGFR Non-African American 85.5 (>60)
[2017-08-25] MEDS: Insulin LISPRO* 1 UNITS UNIT SUBCUT SCH ×2 (06:10→13:24)
[2017-08-25] MEDS: Magnesium Sulfate 2 GM IV* 2 GM/50 ML BAG IVPB SCH ×3 (06:32→13:40)
[2017-08-25] MEDS: ZOSYN 3.375 GM Q8H per EXTENDED INFUSION IVPB SCH ×6 (09:14→23:58)
[2017-08-25] MEDS: methylPREDNISolone SOD 40 MG* 1 ML VIAL IV SCH ×2 (09:14→20:47)
[2017-08-25] MEDS: NS 0.9% 1000 ML* 1,000 ML IV SCH (09:15)
[2017-08-25] MEDS: Mycophenolate Mofetil CAP(*) 250 MG PO SCH ×2 (09:16→20:46)
[2017-08-25] MEDS: Tacrolimus CAP(*) 1 MG PO SCH ×2 (09:18→20:46)
--- NOTE | 2017-08-25 12:52 | PN ---
Progress Note - Progress Note Date of Service: 08/25/17 Note: POD#1 s/p bowel rsxn. T101, VS OK UO large No N/V No stool/flatus Pain control OK Breathing unlabored, color good Abd: soft, sore, drsg w/ trace drainage, BS active Impr: Doing well s/p necrotic bowel cont iv abx advance diet slowly OOB as riana Out of ICU BP and anti-rejection Meds per hospitalist
--- NOTE | 2017-08-25 13:11 | PN ---
Subjective Date of Service: 08/25/17 Interval History: . doing well this AM s/p bowel resection yesterday. vitals stable. WBC trend is encouraging Laboratory Tests 08/24/17 08/24/17 08/25/17 01:02 09:52 04:20 WBC 11.3 H 12.7 H 10.3 Still low grade fevers Selected Entries 08/24/17 08/24/17 08/25/17 17:40 19:27 00:16 Temperature 100.7 F 100.3 F 99.3 F 08/25/17 08/25/17 08/25/17 03:13 08:00 09:00 Temperature 100.2 F 101.8 F 100.2 F Family History: Unchanged from Admission Social History: Unchanged from Admission Past Medical History: Unchanged from Admission Objective Active Medications: . Dextrose (D50w Syringe 50 Ml*) 12.5 gm IV PUSH .FOR FS < 60 - SS PRN PRN Reason: FS < 60 Hydromorphone HCl (Dilaudid Inj*) 1 mg IV SLOW PU Q1H PRN PRN Reason: PAIN Last Admin: 08/25/17 12:52 Dose: 1 mg Piperacillin Sod/Tazobactam (Sod 3.375 gm/ Sodium Chloride) 100 mls @ 25 mls/ hr IVPB 0000,0800,1600 [facility] Last Admin: 08/25/17 09:14 Dose: 25 mls/hr Sodium Chloride (Ns 0.9% 1000 Ml*) 1,000 mls @ 50 mls/hr IV PER RATE [facility] Insulin Human Lispro (Humalog*) 0 units SUBCUT Q6HR [facility]; Protocol Last Admin: 08/25/17 06:10 Dose: Not Given Methylprednisolone Sodium Succinate (Solu-Medrol 40 Mg) 20 mg IV BID [facility] Last Admin: 08/25/17 09:14 Dose: 20 mg Metoprolol Tartrate (Lopressor Iv*) 5 mg IV Q6H PRN PRN Reason: BLOOD PRESSURE Last Admin: 08/25/17 07:55 Dose: 5 mg Mycophenolate Mofetil (Cellcept Cap(*)) 1,000 mg PO BID [facility] Last Admin: 08/25/17 09:16 Dose: 1,000 mg Ondansetron HCl (Zofran 40 Mg Vial*) 4 mg IV Q4HR PRN PRN Reason: NAUSEA Pharmacy Consult (Zosyn Per Pharmacy*) 1 note FOLLOW UP .ZOSYN PER PHARMACY [facility] Tacrolimus (Prograf Cap(*)) 1 mg PO BID [facility] Last Admin: 08/25/17 09:18 Dose: 1 mg Vital Signs - 8 hr 08/25/17 08/25/17 08/25/17 05:30 06:00 06:30 Temperature Pulse Rate 100 111 104 Respiratory 22 19 22 Rate Blood Pressure 150/79 150/82 140/82 (mmHg) O2 Sat by Pulse 94 93 94 Oximetry 08/25/17 08/25/17 08/25/17 07:00 07:30 08:00 Temperature 101.8 F Pulse Rate 113 112 100 Respiratory 22 20 27 Rate Blood Pressure 153/83 162/83 154/79 (mmHg) O2 Sat by Pulse 93 93 93 Oximetry Oxygen Devices in Use Now: None Appearance: NAD Eyes: No Scleral Icterus Result Diagrams: 08/25/17 04:20 08/25/17 04:20 Additional Lab and Data: Lab Results 08/24/17 08/24/17 08/24/17 Range/Units 01:02 01:02 01:02 WBC 11.3 H (3.5-10.8) 10^3/ul RBC 5.17 (4.00-5.40) 10^6/ul Hgb 16.8 (14.0-18.0) g/dl Hct 50 (42-52) % MCV 96 H (80-94) fL MCH 33 H (27-31) pg MCHC 34 (31-36) g/dl RDW 14 (10.5-15) % Plt Count 257 (150-450) 10^3/ul MPV 8.6 (7.4-10.4) um3 Neut % (Auto) 86.6 H (38-83) % Lymph % (Auto) 6.2 L (25-47) % [place] % (Auto) 5.8 (0-7) % Eos % (Auto) 0.3 (0-6) % Baso % (Auto) 1.1 (0-2) % Absolute Neuts (auto) 9.7 H (1.5-7.7) 10^3/ul Absolute Lymphs (auto) 0.7 L (1.0-4.8) 10^3/ul Absolute Monos (auto) 0.7 (0-0.8) 10^3/ul Absolute Eos (auto) 0 (0-0.6) 10^3/ul Absolute Basos (auto) 0.1 (0-0.2) 10^3/ul Absolute Nucleated RBC 0 10^3/ul Nucleated RBC % 0.1 Sodium 141 (135-145) mmol/L Potassium 3.7 (3.5-5.0) mmol/L Chloride 104 (101-111) mmol/L Carbon Dioxide 21 L (22-32) mmol/L Anion Gap 16 H (2-11) mmol/L BUN 16 (6-24) mg/dL Creatinine 1.03 (0.67-1.17) mg/dL Est GFR ( Amer) 88.5 (>60) Est GFR (Non-Af Amer) 73.2 (>60) BUN/Creatinine Ratio 15.5 (8-20) Glucose 265 H (70-100) mg/dL Lactic Acid 3.1 H* (0.5-2.0) mmol/L Calcium 10.7 H (8.6-10.3) mg/dL Total Bilirubin 0.60 (0.2-1.0) mg/dL AST 26 (13-39) U/L ALT 31 (7-52) U/L Alkaline Phosphatase 105 H (34-104) U/L C-Reactive Protein < 1.00 (<8.01) mg/L Total Protein 6.6 (6.4-8.9) g/dL Albumin 4.6 (3.2-5.2) g/dL Globulin 2.0 (2-4) g/dL Albumin/Globulin Ratio 2.3 (1-3) Lipase 36 (11.0-82.0) U/L Microbiology and Other Data: Microbiology 08/24/17 12:30 Aerobic Blood Culture - Preliminary Blood Venous No Growth Day 1 Anaerobic Blood Culture - Preliminary No Growth Day 1 08/24/17 07:00 Urine Culture - Final Urine No Growth (<1,000 CFU/mL) Assess/Plan/Problems-Billing . Assessment: 62 yo man with complex PMHx including Ryan's GN, ROE, pancreatitis, ESRD; s/p kidney transplant in 2014, DM, hx perferated intestine 2012 with colostomy reversal; now admitted with SBO, requiring bowel resection on 08/25/17 for ischemic segment. case complicated with question of STEMI pre-op, but deemed *NOT* to be true ACS. patient did well ; ordered to transfer to [facility] 08/25/2017. - Patient Problems (1) Strangulation of intestine Current Visit: Yes Status: Acute Priority: High Code(s): K56.2 - VOLVULUS Comment: - s/p resection by general surgery. - continue Zosyn. - now advance diet slowly as per surgery team. (2) Small bowel obstruction due to adhesions Current Visit: Yes Status: Acute Priority: High Code(s): K56.50 - INTESTNL ADHESIONS, UNSP TO PARTIAL VERSUS COMPLETE OBST (3) History of renal transplant Current Visit: Yes Status: Acute Comment: -Continue Solumedrol , Cellcept, and Prograf (4) Diabetes mellitus type II, controlled Current Visit: Yes Status: Chronic Priority: High Code(s): E11.9 - TYPE 2 DIABETES MELLITUS WITHOUT COMPLICATIONS Comment: - insulin management dc'd at patient request...glucose values are generally between 100-150. (5) Fever Current Visit: Yes Status: Acute Priority: High Code(s): R50.9 - FEVER, UNSPECIFIED Comment: - tylenol prn - continue antibiotics; result of abdominal process. Status and Disposition: .
--- NOTE | 2017-08-25 13:24 | PN ---
Subjective Date of Service: 08/25/17 - CC: abdominal pain, improving Interval History: Pt s/p surgury POD #1 for necrotic bowel/s/p resection. Mild incisional discomfort. No CP no SOB. Feeling better c/w pre op. Medications Active Medications: Dextrose (D50w Syringe 50 Ml*) 12.5 gm IV PUSH .FOR FS < 60 - SS PRN PRN Reason: FS < 60 Hydromorphone HCl (Dilaudid Inj*) 1 mg IV SLOW PU Q1H PRN PRN Reason: PAIN Last Admin: 08/25/17 12:52 Dose: 1 mg Piperacillin Sod/Tazobactam (Sod 3.375 gm/ Sodium Chloride) 100 mls @ 25 mls/ hr IVPB 0000,0800,1600 [facility] Last Admin: 08/25/17 09:14 Dose: 25 mls/hr Sodium Chloride (Ns 0.9% 1000 Ml*) 1,000 mls @ 50 mls/hr IV PER RATE [facility] Insulin Human Lispro (Humalog*) 0 units SUBCUT Q6HR [facility]; Protocol Last Admin: 08/25/17 06:10 Dose: Not Given Methylprednisolone Sodium Succinate (Solu-Medrol 40 Mg) 20 mg IV BID [facility] Last Admin: 08/25/17 09:14 Dose: 20 mg Metoprolol Tartrate (Lopressor Iv*) 5 mg IV Q6H PRN PRN Reason: BLOOD PRESSURE Last Admin: 08/25/17 07:55 Dose: 5 mg Mycophenolate Mofetil (Cellcept Cap(*)) 1,000 mg PO BID [facility] Last Admin: 08/25/17 09:16 Dose: 1,000 mg Ondansetron HCl (Zofran 40 Mg Vial*) 4 mg IV Q4HR PRN PRN Reason: NAUSEA Pharmacy Consult (Zosyn Per Pharmacy*) 1 note FOLLOW UP .ZOSYN PER PHARMACY [facility] Tacrolimus (Prograf Cap(*)) 1 mg PO BID [facility] Last Admin: 08/25/17 09:18 Dose: 1 mg Objective Vital Signs: Temp Pulse Resp BP Pulse Ox 100.2 F 93 29 149/73 93 08/25/17 09:00 08/25/17 11:00 08/25/17 12:52 08/25/17 11:00 08/25/17 11:00 Oxygen Devices in Use Now: None Appearance: lean somewhat older male in bed, 60 degrees, comfortable. Eyes: No Scleral Icterus, PERRLA Ears/Nose/Mouth/Throat: Clear Oropharnyx, Mucous Membranes Moist Neck: NL Appearance and Movements; NL JVP Respiratory: Clear to Auscultation Cardiovascular: RRR - borderline tachycardia Abdominal: - - diminished bowel sounds. Extremities: No Edema - SCD on Skin: No Rash or Ulcers Neurological: Alert and Oriented x 3 Lines/Tubes/Other Access: Clean, Dry and Intact Peripheral IV Laboratory Results: 08/25/17 04:20 08/25/17 04:20 Total Bilirubin 0.80 mg/dL (0.2-1.0) 08/25/17 04:20 AST 19 U/L (13-39) 08/25/17 04:20 ALT 17 U/L (7-52) 08/25/17 04:20 Alkaline Phosphatase 44 U/L (34-104) 08/25/17 04:20 CK-MB (CK-2) 7.7 ng/mL (0.6-6.3) H 08/25/17 04:20 Total Protein 5.1 g/dL (6.4-8.9) L 08/25/17 04:20 Albumin 3.3 g/dL (3.2-5.2) 08/25/17 04:20 Globulin 1.8 g/dL (2-4) L 08/25/17 04:20 Albumin/Globulin Ratio 1.8 (1-3) 08/25/17 04:20 08/24/17 08/24/17 08/25/17 12:30 19:43 00:12 Troponin I 0.05 H* 0.06 H* 0.07 H* 08/25/17 04:20 Troponin I 0.05 H* Assessment/Plan 62 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 Pt now POD #1, improved. Troponins trending down, HR still elevated, but improved and may reflect appropriate response to pain, surgery, decrease oral intake. Hx HTN, hyperlipidemia, glucose elevation on steroids and FHx early CAD. Considerations during post op period could include low dose metoprolol for BP, rate control, decrease stress on heart and small vessels. Avoid hyptension/hypoperfusion by low dose. Cardiology will follow distantly. Dr Norman has seen the patient as an outpatient, I recommend follow up with him w/in 1 month post op.
[2017-08-26] MEDS: HYDROmorphone INJ* 2 MG/ML CARPUJECT SYRINGE IV SLOW PU PRN ×4 (00:02→22:10)
[2017-08-26] MEDS: NS 0.9% 1000 ML* 1,000 ML IV SCH ×2 (01:54→14:29)
[2017-08-26 05:42] LABS: ABS Basophils 0 10^3/ul (0-0.2); ABS Eosinophils 0 10^3/ul (0-0.6); ABS Lymphocytes 0.1 10^3/ul (1.0-4.8); ABS Monocytes 0.4 10^3/ul (0-0.8); ABS Neutrophils 8.4 10^3/ul (1.5-7.7); ABS Nucleated RBC 0 10^3/ul; Eosinophil % 0 % (0-6); Hematocrit 37 % (42-52); Hemoglobin 12.3 g/dl (14.0-18.0); Lymphocyte % 1.1 % (25-47); Mean Corpuscular HGB Conc 33 g/dl (31-36); Mean Corpuscular Hemoglobin 33 pg (27-31); Mean Corpuscular Volume 97 fL (80-94); Mean Platelet Volume 8.3 um3 (7.4-10.4); Nucleated Red Blood Cells % 0; Platelet Count 157 10^3/ul (150-450); Red Blood Count 3.77 10^6/ul (4.00-5.40); Red Cell Distribution Width 15 % (10.5-15); White Blood Count 8.9 10^3/ul (3.5-10.8)
[2017-08-26 06:00] LABS: EGFR Non-African American 91.3 (>60)
[2017-08-26] MEDS: ZOSYN 3.375 GM Q8H per EXTENDED INFUSION IVPB SCH ×4 (08:09→15:30)
[2017-08-26] MEDS: Tacrolimus CAP(*) 0.5 MG PO SCH ×2 (09:12→21:58)
[2017-08-26] MEDS: methylPREDNISolone SOD 40 MG* 1 ML VIAL IV SCH ×2 (09:12→20:52)
[2017-08-26] MEDS: Mycophenolate Mofetil CAP(*) 250 MG PO SCH ×2 (09:13→21:56)
--- NOTE | 2017-08-26 09:37 | PN ---
Progress Note - Progress Note Date of Service: 08/26/17 Note: POD#2 s/p bowel rsxn Afeb, VS noted Chava liquids, No N/V UO large, No stool/flatus Pain control good Abd: soft, sore, incis clean, active BS Impr: Recovering from bowel rsxn await GI fxn before solid food cont abx meds per hospitalist
[2017-08-26] MEDS ORDERED: NS 0.9% 1000 ML* 1,000 ML IV ONE (13:01)
[2017-08-26] MEDS: Metoprolol Tartrate IV* 1 MG/ML 5 ML VIAL IV PRN (19:30)
[2017-08-26] MEDS ORDERED: Al Hydrox/Mg Hydrox/Simet LIQ* 30 ML UDC PO PRN (19:44)
[2017-08-26] MEDS ORDERED: Magnesium Sulf 4 GM/100 ML IV* 4,000 MG/100 ML BAG IVPB ONE (20:09)
[2017-08-26] MEDS ORDERED: PROCHLORPERAZINE INJ 5 MG/ML 2 ML VIAL IV PRN (20:22)
[2017-08-26] MEDS: Pantoprazole IV* 40 MG IV SCH (20:44)
--- NOTE | 2017-08-26 22:49 | PN ---
Progress Note - Progress Note Date of Service: 08/26/17 SOAP: Subjective: CTSP earlier this evening for severe heartburn and nausea. Complaints of burping and some diaphoresis. No flatus, no vomiting. Abdomen feels more distended. Incisional pain about the same. Objective: Temp Pulse Resp BP Pulse Ox 97.7 F 115 16 176/82 95 08/26/17 19:16 08/26/17 19:16 08/26/17 22:10 08/26/17 19:16 08/26/17 19:16 PEX: HR slightly elevated 110 Awake and alert-appears uncomfortable Lungs clear Abd is distended and tympanitic, incision is CDI. No bowel sounds present. Appropriate incisional tenderness EKG shows no acute change, troponin the same as recent value Assessment: POD# 2 s/p ex lap with small bowel resection for SBO Suspect post-op ileus Plan: Discussed with hospitalistCeasar-she does not feel cardiac etiology to heartburn, nausea. NGT placed and initially drained 1 liter of brown-bilious fluid--will leave in on LCWS Follow for now Recheck labs in AM NPO/IVF
[2017-08-26] MEDS: Metoprolol Tartrate IV* 1 MG/ML 5 ML VIAL IV SCH (22:55)
[2017-08-26] MEDS ORDERED: Metoprolol Tartrate IV* 1 MG/ML 5 ML VIAL IV SCH (23:00)
[2017-08-27] MEDS: ZOSYN 3.375 GM Q8H per EXTENDED INFUSION IVPB SCH ×6 (01:06→16:11)
[2017-08-27] MEDS: Metoprolol Tartrate IV* 1 MG/ML 5 ML VIAL IV SCH ×5 (03:20→20:56)
[2017-08-27] MEDS: HYDROmorphone INJ* 2 MG/ML CARPUJECT SYRINGE IV SLOW PU PRN ×3 (03:32→16:10)
[2017-08-27 05:46] LABS: Hematocrit 45 % (42-52); Hemoglobin 15.6 g/dl (14.0-18.0); Mean Corpuscular HGB Conc 35 g/dl (31-36); Mean Corpuscular Hemoglobin 33 pg (27-31); Mean Corpuscular Volume 96 fL (80-94); Mean Platelet Volume 8.2 um3 (7.4-10.4); Platelet Count 223 10^3/ul (150-450); Red Blood Count 4.69 10^6/ul (4.00-5.40); Red Cell Distribution Width 14 % (10.5-15); White Blood Count 6.8 10^3/ul (3.5-10.8)
[2017-08-27 05:59] LABS: EGFR Non-African American 120.2 (>60)
[2017-08-27 06:01] LABS: ABS Basophils 0.1 10^3/ul (0-0.2); ABS Eosinophils 0 10^3/ul (0-0.6); ABS Lymphocytes 0.1 10^3/ul (1.0-4.8); ABS Monocytes 0.4 10^3/ul (0-0.8); ABS Neutrophils 6.1 10^3/ul (1.5-7.7); ABS Nucleated RBC 0 10^3/ul; Eosinophil % 0.1 % (0-6); Lymphocyte % 1.8 % (25-47); Nucleated Red Blood Cells % 0.1
--- NOTE | 2017-08-27 08:20 | PN ---
Progress Note - Progress Note Date of Service: 08/27/17 Note: POD#3 s/p bowel rsxn Afeb, VS noted UO large, NG large Had NG placed for nausea and bloating. Feels better now. No stool or flatus. Looks wiped out Abd distended, non-tender, incis clean, BS decreased Impr Ileus s/p bowel rsxn Cont NGT until GI fxn Follow labs Other meds per hospitalist
[2017-08-27] MEDS ORDERED: predniSONE TAB* 5 MG PO SCH (09:00)
[2017-08-27] MEDS ORDERED: Metoprolol Tartrate TAB* 25 MG PO SCH (09:00)
--- NOTE | 2017-08-27 09:14 | PN ---
Subjective Date of Service: 08/27/17 Interval History: Patient reports he had a "rough night" with abdominal bloating and discomfort and an NG tube was placed, he now reports he feels much better with less discomfort and bloating. Denies abdominal pain. No nausea or vomiting. No fevers or chills. Spoke to pt's over the phone Family History: Unchanged from Admission Social History: Unchanged from Admission Past Medical History: Unchanged from Admission Objective Active Medications: Al Hydrox/Mg Hydrox/Simethicone (Maalox Plus*) 30 ml PO Q2H PRN PRN Reason: INDIGESTION Dextrose (D50w Syringe 50 Ml*) 12.5 gm IV PUSH .FOR FS < 60 - SS PRN PRN Reason: FS < 60 Hydromorphone HCl (Dilaudid Inj*) 1 mg IV SLOW PU Q1H PRN PRN Reason: PAIN Last Admin: 08/27/17 03:32 Dose: 1 mg Piperacillin Sod/Tazobactam (Sod 3.375 gm/ Sodium Chloride) 100 mls @ 25 mls/ hr IVPB 0000,0800,1600 [facility] Last Admin: 08/27/17 08:17 Dose: 25 mls/hr Sodium Chloride (Ns 0.9% 1000 Ml*) 1,000 mls @ 50 mls/hr IV PER RATE [facility] Last Admin: 08/26/17 14:29 Dose: 50 mls/hr Metoprolol Tartrate (Lopressor Iv*) 5 mg IV Q4H [facility] Mycophenolate Mofetil (Cellcept Cap(*)) 1,000 mg PO BID [facility] Last Admin: 08/26/17 21:56 Dose: 1,000 mg Ondansetron HCl (Zofran 40 Mg Vial*) 4 mg IV Q4HR PRN PRN Reason: NAUSEA Pantoprazole Sodium (Protonix Iv*) 40 mg IV Q24H [facility] Last Admin: 08/26/17 20:44 Dose: 40 mg Pharmacy Consult (Zosyn Per Pharmacy*) 1 note FOLLOW UP .ZOSYN PER PHARMACY [facility] Prednisone (Deltasone Tab*) 5 mg PO DAILY [facility] Prochlorperazine Edisylate (Compazine Inj*) 5 mg IV Q6H PRN PRN Reason: NAUSEA/VOMITING Last Admin: 08/26/17 20:49 Dose: 5 mg Tacrolimus (Prograf Cap(*)) 1 mg PO BID [facility] Last Admin: 08/26/17 21:58 Dose: 1 mg Vital Signs - 8 hr 08/27/17 08/27/17 08/27/17 03:16 03:32 03:35 Temperature 97.6 F Pulse Rate 126 99 Respiratory 16 16 Rate Blood Pressure 174/98 (mmHg) O2 Sat by Pulse 96 Oximetry 08/27/17 08/27/17 08/27/17 04:25 04:40 04:49 Temperature Pulse Rate 55 110 Respiratory 16 Rate Blood Pressure 160/77 (mmHg) O2 Sat by Pulse 96 Oximetry 08/27/17 07:45 Temperature 97.5 F Pulse Rate 124 Respiratory 20 Rate Blood Pressure 150/92 (mmHg) O2 Sat by Pulse 97 Oximetry Oxygen Devices in Use Now: None Appearance: 62 yo male A+O x3 in NAD, appears mildly ill Eyes: No Scleral Icterus, PERRLA Ears/Nose/Mouth/Throat: NL Teeth, Lips, Gums, Mucous Membranes Moist Respiratory: Symmetrical Chest Expansion and Respiratory Effort, Clear to Auscultation Cardiovascular: NL Sounds; No Murmurs; No JVD, RRR, No Edema Abdominal: - - midline incision with ankit, intact, appears to be healing well. Hypoactive BS, soft, NT, no guarding Extremities: No Edema, No Clubbing, Cyanosis Skin: No Rash or Ulcers, No Nodules or Sclerosis Neurological: Alert and Oriented x 3, NL Sensation, NL Gait, NL Muscle Strength and Tone Lines/Tubes/Other Access: Clean, Dry and Intact Peripheral IV Nutrition: Taking PO's Result Diagrams: 08/27/17 05:32 08/27/17 05:32 Additional Lab and Data: Lab Results 08/24/17 08/24/17 08/24/17 Range/Units 01:02 01:02 01:02 WBC 11.3 H (3.5-10.8) 10^3/ul RBC 5.17 (4.00-5.40) 10^6/ul Hgb 16.8 (14.0-18.0) g/dl Hct 50 (42-52) % MCV 96 H (80-94) fL MCH 33 H (27-31) pg MCHC 34 (31-36) g/dl RDW 14 (10.5-15) % Plt Count 257 (150-450) 10^3/ul MPV 8.6 (7.4-10.4) um3 Neut % (Auto) 86.6 H (38-83) % Lymph % (Auto) 6.2 L (25-47) % [place] % (Auto) 5.8 (0-7) % Eos % (Auto) 0.3 (0-6) % Baso % (Auto) 1.1 (0-2) % Absolute Neuts (auto) 9.7 H (1.5-7.7) 10^3/ul Absolute Lymphs (auto) 0.7 L (1.0-4.8) 10^3/ul Absolute Monos (auto) 0.7 (0-0.8) 10^3/ul Absolute Eos (auto) 0 (0-0.6) 10^3/ul Absolute Basos (auto) 0.1 (0-0.2) 10^3/ul Absolute Nucleated RBC 0 10^3/ul Nucleated RBC % 0.1 Sodium 141 (135-145) mmol/L Potassium 3.7 (3.5-5.0) mmol/L Chloride 104 (101-111) mmol/L Carbon Dioxide 21 L (22-32) mmol/L Anion Gap 16 H (2-11) mmol/L BUN 16 (6-24) mg/dL Creatinine 1.03 (0.67-1.17) mg/dL Est GFR ( Amer) 88.5 (>60) Est GFR (Non-Af Amer) 73.2 (>60) BUN/Creatinine Ratio 15.5 (8-20) Glucose 265 H (70-100) mg/dL Lactic Acid 3.1 H* (0.5-2.0) mmol/L Calcium 10.7 H (8.6-10.3) mg/dL Total Bilirubin 0.60 (0.2-1.0) mg/dL AST 26 (13-39) U/L ALT 31 (7-52) U/L Alkaline Phosphatase 105 H (34-104) U/L C-Reactive Protein < 1.00 (<8.01) mg/L Total Protein 6.6 (6.4-8.9) g/dL Albumin 4.6 (3.2-5.2) g/dL Globulin 2.0 (2-4) g/dL Albumin/Globulin Ratio 2.3 (1-3) Lipase 36 (11.0-82.0) U/L Microbiology and Other Data: Microbiology 08/24/17 12:30 Aerobic Blood Culture - Preliminary Blood Venous No Growth Day 1 Anaerobic Blood Culture - Preliminary No Growth Day 1 08/24/17 07:00 Urine Culture - Final Urine No Growth (<1,000 CFU/mL) Assess/Plan/Problems-Billing . Assessment: 62 yo man with complex PMHx including Ryan's GN, ROE, pancreatitis, ESRD; s/p kidney transplant in 2014, DM, hx perforated intestine 2012 with colostomy reversal; now admitted with SBO, requiring bowel resection on 08/25/17 for ischemic segment. case complicated with question of STEMI pre-op, but deemed *NOT* to be true ACS. - Patient Problems (1) Strangulation of intestine Comment: - s/p resection by general surgery for necrotic bowel. - NGT placed last night for increasing abdominal distention - ok per surgery to continue anti-rejection meds PO and clamped for 2 hours. - continue Zosyn. (2) Fever Comment: - resolved - tylenol prn - continue antibiotics; result of abdominal process. (3) History of renal transplant Comment: -Continue Solumedrol , Cellcept, and Prograf (4) Hypertension Comment: - hx of hypertension on metoprolol 75 mg BID, this was confirmed with his pharmacy - was tachycardic which could have been from beta jessenia withdrawl - he was started on IV BB last night and HR improving. Hold PO meds for now and continue metoprolol IV 5 mg Q4 scheduled, starting PO med when able. - hold home norvasc dose. - Hydralyzine prn IV (5) Diabetes mellitus type II, controlled Comment: - insulin management dc'd at patient request...glucose values are generally between 100-150. last HgA1C 5.7 in 2017 (6) DVT prophylaxis Comment: -Will defer with Surgical team as to preference as well Status and Disposition: .inpatient. home when medically stable
[2017-08-27] MEDS ORDERED: methylPREDNISolone SOD 40 MG* 1 ML VIAL ONE (09:49)
[2017-08-27] MEDS: methylPREDNISolone SOD 40 MG* 1 ML VIAL IV SCH ×2 (09:56→22:27)
[2017-08-27] MEDS: Tacrolimus CAP(*) 0.5 MG PO SCH ×2 (10:01→21:07)
[2017-08-27] MEDS: Mycophenolate Mofetil CAP(*) 250 MG PO SCH ×2 (10:01→21:06)
[2017-08-27] MEDS: NS 0.9% 1000 ML* 1,000 ML IV SCH (10:14)
[2017-08-27] MEDS ORDERED: Metoprolol Tartrate IV* 1 MG/ML 5 ML VIAL IV SCH ×2 (12:00)
[2017-08-27] MEDS ORDERED: hydrALAZINE IV* 20 MG/ML VIAL IV SLOW PU PRN (17:22)
[2017-08-27] MEDS: Pantoprazole IV* 40 MG IV SCH (21:02)
[2017-08-28] MEDS: Metoprolol Tartrate IV* 1 MG/ML 5 ML VIAL IV SCH ×7 (00:14→23:46)
[2017-08-28] MEDS: ZOSYN 3.375 GM Q8H per EXTENDED INFUSION IVPB SCH ×8 (00:21→23:47)
[2017-08-28] MEDS: NS 0.9% 1000 ML* 1,000 ML IV SCH (04:57)
[2017-08-28 06:12] LABS: ABS Basophils 0 10^3/ul (0-0.2); ABS Eosinophils 0 10^3/ul (0-0.6); ABS Lymphocytes 0.2 10^3/ul (1.0-4.8); ABS Monocytes 0.4 10^3/ul (0-0.8); ABS Neutrophils 3.6 10^3/ul (1.5-7.7); ABS Nucleated RBC 0 10^3/ul; Eosinophil % 0 % (0-6); Hematocrit 39 % (42-52); Hemoglobin 13.6 g/dl (14.0-18.0); Mean Corpuscular HGB Conc 35 g/dl (31-36); Mean Corpuscular Hemoglobin 33 pg (27-31); Mean Corpuscular Volume 96 fL (80-94); Mean Platelet Volume 7.9 um3 (7.4-10.4); Nucleated Red Blood Cells % 0.1; Platelet Count 214 10^3/ul (150-450); Red Blood Count 4.08 10^6/ul (4.00-5.40); Red Cell Distribution Width 14 % (10.5-15); White Blood Count 4.2 10^3/ul (3.5-10.8)
[2017-08-28 06:28] LABS: EGFR Non-African American 107.2 (>60)
[2017-08-28] MEDS: Tacrolimus CAP(*) 0.5 MG PO SCH ×2 (09:21→20:24)
[2017-08-28] MEDS: methylPREDNISolone SOD 40 MG* 1 ML VIAL IV SCH ×2 (09:21→21:58)
[2017-08-28] MEDS: Mycophenolate Mofetil CAP(*) 250 MG PO SCH ×2 (09:22→20:25)
--- NOTE | 2017-08-28 09:32 | PN ---
Progress Note - Progress Note Date of Service: 08/28/17 SOAP: Subjective:POD#4 s/p laparotomy,TILA,resection necrotic portion of ileum passing flatus and liquid stool,no nausea or vomiting;no dysuria;up walking [] Objective:afeb,BP 150/73,HR regular 84;RR 18;O2sat 99%RA;lungs:clear bilat,good aeration;abd:hypoactive bs,soft,nondistended;midline incision C/D/I with ankit ,no erythema or drainage;ext:nontender,no edema;NG 475ml overnight;[id number] overnight Laboratory Last Values WBC 4.2 10^3/ul (3.5-10.8) 08/28/17 05:36 RBC 4.08 10^6/ul (4.00-5.40) 08/28/17 05:36 Hgb 13.6 g/dl (14.0-18.0) L 08/28/17 05:36 Hct 39 % (42-52) L 08/28/17 05:36 MCV 96 fL (80-94) H 08/28/17 05:36 MCH 33 pg (27-31) H 08/28/17 05:36 MCHC 35 g/dl (31-36) 08/28/17 05:36 RDW 14 % (10.5-15) 08/28/17 05:36 Plt Count 214 10^3/ul (150-450) 08/28/17 05:36 MPV 7.9 um3 (7.4-10.4) 08/28/17 05:36 Neut % (Auto) 87.0 % (38-83) H 08/28/17 05:36 Lymph % (Auto) 4.0 % (25-47) L 08/28/17 05:36 [place] % (Auto) 9.0 % (0-7) H 08/28/17 05:36 Eos % (Auto) 0 % (0-6) 08/28/17 05:36 Baso % (Auto) 0 % (0-2) 08/28/17 05:36 Absolute Neuts (auto) 3.6 10^3/ul (1.5-7.7) 08/28/17 05:36 Absolute Lymphs (auto) 0.2 10^3/ul (1.0-4.8) L 08/28/17 05:36 Absolute Monos (auto) 0.4 10^3/ul (0-0.8) 08/28/17 05:36 Absolute Eos (auto) 0 10^3/ul (0-0.6) 08/28/17 05:36 Absolute Basos (auto) 0 10^3/ul (0-0.2) 08/28/17 05:36 Absolute Nucleated RBC 0 10^3/ul 08/28/17 05:36 Nucleated RBC % 0.1 08/28/17 05:36 Sodium 142 mmol/L (135-145) 08/28/17 05:36 Potassium 4.0 mmol/L (3.5-5.0) 08/28/17 05:36 Chloride 111 mmol/L (101-111) 08/28/17 05:36 Carbon Dioxide 25 mmol/L (22-32) 08/28/17 05:36 Anion Gap 6 mmol/L (2-11) 08/28/17 05:36 BUN 23 mg/dL (6-24) 08/28/17 05:36 Creatinine 0.74 mg/dL (0.67-1.17) 08/28/17 05:36 Est GFR ( Amer) 129.7 (>60) 08/28/17 05:36 Est GFR (Non-Af Amer) 107.2 (>60) 08/28/17 05:36 BUN/Creatinine Ratio 31.1 (8-20) H 08/28/17 05:36 Glucose 144 mg/dL (70-100) H 08/28/17 05:36 POC Glucose (mg/dL) 157 mg/dL (70-100) H 08/25/17 13:06 Lactic Acid 3.3 mmol/L (0.5-2.0) H* 08/24/17 09:52 Calcium 9.2 mg/dL (8.6-10.3) 08/28/17 05:36 Phosphorus 3.2 mg/dL (2.5-5.0) 08/25/17 04:20 Magnesium 2.3 mg/dL (1.9-2.7) 08/27/17 05:32 Total Bilirubin 0.80 mg/dL (0.2-1.0) 08/25/17 04:20 AST 19 U/L (13-39) 08/25/17 04:20 ALT 17 U/L (7-52) 08/25/17 04:20 Alkaline Phosphatase 44 U/L (34-104) 08/25/17 04:20 Total Creatine Kinase 104 U/L (10-223) 08/25/17 04:20 CK-MB (CK-2) 7.7 ng/mL (0.6-6.3) H 08/25/17 04:20 Troponin I 0.04 ng/mL (<0.04) H* 08/27/17 00:13 C-Reactive Protein 7.29 mg/L (<8.01) 08/24/17 09:52 Total Protein 5.1 g/dL (6.4-8.9) L 08/25/17 04:20 Albumin 3.3 g/dL (3.2-5.2) 08/25/17 04:20 Globulin 1.8 g/dL (2-4) L 08/25/17 04:20 Albumin/Globulin Ratio 1.8 (1-3) 08/25/17 04:20 Lipase 36 U/L (11.0-82.0) 08/24/17 01:02 Urine Color Straw 08/24/17 07:00 Urine Appearance Clear 08/24/17 07:00 Urine pH 5.0 (5-9) 08/24/17 07:00 Ur Specific [place] 1.015 (1.010-1.030) 08/24/17 07:00 Urine Protein Negative (Negative) 08/24/17 07:00 Urine Ketones 1+ (Negative) A 08/24/17 07:00 Urine Blood 1+ (Negative) A 08/24/17 07:00 Urine Nitrate Negative (Negative) 08/24/17 07:00 Urine Bilirubin Negative (Negative) 08/24/17 07:00 Urine Urobilinogen Negative (Negative) 08/24/17 07:00 Ur Leukocyte Esterase Negative (Negative) 08/24/17 07:00 Urine WBC (Auto) Trace(0-5/hpf) (Absent) 08/24/17 07:00 Urine RBC (Auto) 1+(3-5/hpf) (Absent) A 08/24/17 07:00 Urine Bacteria Absent (Absent) 08/24/17 07:00 Urine Glucose 3+(>=500 mg/dl) (Negative) A 08/24/17 07:00 [] Assessment:passing flatus and stool [] Plan:clamp NG 4hrs and check residual,if less than 100ml pull NG and start clear liquids;discussed with []
--- NOTE | 2017-08-28 10:48 | PN ---
Subjective Date of Service: 08/28/17 Interval History: Pt reports he feels better today with less bloating. No Nausea. is passing gas. Denies fever or chills Family History: Unchanged from Admission Social History: Unchanged from Admission Past Medical History: Unchanged from Admission Objective Active Medications: Al Hydrox/Mg Hydrox/Simethicone (Maalox Plus*) 30 ml PO Q2H PRN PRN Reason: INDIGESTION Dextrose (D50w Syringe 50 Ml*) 12.5 gm IV PUSH .FOR FS < 60 - SS PRN PRN Reason: FS < 60 Hydralazine HCl (Apresoline Iv*) 5 mg IV SLOW PU Q6H PRN PRN Reason: BLOOD PRESSURE Last Admin: 08/27/17 19:05 Dose: 5 mg Hydromorphone HCl (Dilaudid Inj*) 1 mg IV SLOW PU Q1H PRN PRN Reason: PAIN Last Admin: 08/27/17 16:10 Dose: 1 mg Piperacillin Sod/Tazobactam (Sod 3.375 gm/ Sodium Chloride) 100 mls @ 25 mls/ hr IVPB 0000,0800,1600 [facility] Last Admin: 08/28/17 09:22 Dose: 25 mls/hr Sodium Chloride (Ns 0.9% 1000 Ml*) 1,000 mls @ 50 mls/hr IV PER RATE [facility] Last Admin: 08/28/17 04:57 Dose: 50 mls/hr Methylprednisolone Sodium Succinate (Solu-Medrol 40 Mg) 20 mg IV Q12H [facility] Last Admin: 08/28/17 09:21 Dose: 20 mg Metoprolol Tartrate (Lopressor Iv*) 5 mg IV Q4H [facility] Last Admin: 08/28/17 09:21 Dose: 5 mg Mycophenolate Mofetil (Cellcept Cap(*)) 1,000 mg PO BID [facility] Last Admin: 08/28/17 09:22 Dose: 1,000 mg Ondansetron HCl (Zofran 40 Mg Vial*) 4 mg IV Q4HR PRN PRN Reason: NAUSEA Pantoprazole Sodium (Protonix Iv*) 40 mg IV Q24H [facility] Last Admin: 08/27/17 21:02 Dose: 40 mg Pharmacy Consult (Zosyn Per Pharmacy*) 1 note FOLLOW UP .ZOSYN PER [facility]ACY [facility] Prochlorperazine Edisylate (Compazine Inj*) 5 mg IV Q6H PRN PRN Reason: NAUSEA/VOMITING Last Admin: 08/26/17 20:49 Dose: 5 mg Tacrolimus (Prograf Cap(*)) 1 mg PO BID [facility] Last Admin: 08/28/17 09:21 Dose: 1 mg Vital Signs - 8 hr 08/28/17 08/28/17 08/28/17 03:04 07:11 09:21 Temperature 98.2 F 97.4 F Pulse Rate 78 87 Respiratory 20 16 16 Rate Blood Pressure 154/79 152/73 (mmHg) O2 Sat by Pulse 96 99 99 Oximetry Oxygen Devices in Use Now: None Appearance: 62 yo male laying in bed resting A+O x3 in NAD Eyes: No Scleral Icterus, PERRLA Ears/Nose/Mouth/Throat: NL Teeth, Lips, Gums, Mucous Membranes Moist Respiratory: Symmetrical Chest Expansion and Respiratory Effort, Clear to Auscultation Cardiovascular: NL Sounds; No Murmurs; No JVD, RRR, No Edema Abdominal: - - midline incision with ankit intact, no drainage or erythema, mild tenderness, soft, + BS, no guarding Extremities: No Edema, No Clubbing, Cyanosis Skin: No Rash or Ulcers Neurological: Alert and Oriented x 3, NL Sensation, NL Muscle Strength and Tone Lines/Tubes/Other Access: Clean, Dry and Intact Peripheral IV Nutrition: Taking PO's Result Diagrams: 08/28/17 05:36 08/28/17 05:36 Additional Lab and Data: Lab Results 08/24/17 08/24/17 08/24/17 Range/Units 01:02 01:02 01:02 WBC 11.3 H (3.5-10.8) 10^3/ul RBC 5.17 (4.00-5.40) 10^6/ul Hgb 16.8 (14.0-18.0) g/dl Hct 50 (42-52) % MCV 96 H (80-94) fL MCH 33 H (27-31) pg MCHC 34 (31-36) g/dl RDW 14 (10.5-15) % Plt Count 257 (150-450) 10^3/ul MPV 8.6 (7.4-10.4) um3 Neut % (Auto) 86.6 H (38-83) % Lymph % (Auto) 6.2 L (25-47) % [place] % (Auto) 5.8 (0-7) % Eos % (Auto) 0.3 (0-6) % Baso % (Auto) 1.1 (0-2) % Absolute Neuts (auto) 9.7 H (1.5-7.7) 10^3/ul Absolute Lymphs (auto) 0.7 L (1.0-4.8) 10^3/ul Absolute Monos (auto) 0.7 (0-0.8) 10^3/ul Absolute Eos (auto) 0 (0-0.6) 10^3/ul Absolute Basos (auto) 0.1 (0-0.2) 10^3/ul Absolute Nucleated RBC 0 10^3/ul Nucleated RBC % 0.1 Sodium 141 (135-145) mmol/L Potassium 3.7 (3.5-5.0) mmol/L Chloride 104 (101-111) mmol/L Carbon Dioxide 21 L (22-32) mmol/L Anion Gap 16 H (2-11) mmol/L BUN 16 (6-24) mg/dL Creatinine 1.03 (0.67-1.17) mg/dL Est GFR ( Amer) 88.5 (>60) Est GFR (Non-Af Amer) 73.2 (>60) BUN/Creatinine Ratio 15.5 (8-20) Glucose 265 H (70-100) mg/dL Lactic Acid 3.1 H* (0.5-2.0) mmol/L Calcium 10.7 H (8.6-10.3) mg/dL Total Bilirubin 0.60 (0.2-1.0) mg/dL AST 26 (13-39) U/L ALT 31 (7-52) U/L Alkaline Phosphatase 105 H (34-104) U/L C-Reactive Protein < 1.00 (<8.01) mg/L Total Protein 6.6 (6.4-8.9) g/dL Albumin 4.6 (3.2-5.2) g/dL Globulin 2.0 (2-4) g/dL Albumin/Globulin Ratio 2.3 (1-3) Lipase 36 (11.0-82.0) U/L Microbiology and Other Data: Microbiology 08/24/17 12:30 Aerobic Blood Culture - Preliminary Blood Venous No Growth Day 1 Anaerobic Blood Culture - Preliminary No Growth Day 1 08/24/17 07:00 Urine Culture - Final Urine No Growth (<1,000 CFU/mL) Assess/Plan/Problems-Billing . Assessment: 62 yo man with complex PMHx including Ryan's GN, ROE, pancreatitis, ESRD; s/p kidney transplant in 2014, DM, hx perforated intestine 2012 with colostomy reversal; now admitted with SBO, requiring bowel resection on 08/25/17 for ischemic segment. case complicated with question of STEMI pre-op, but deemed *NOT* to be true ACS. - Patient Problems (1) Strangulation of intestine Comment: - s/p resection by general surgery for necrotic bowel. - NGT placed 08/26 for increasing abdominal distention - ok per surgery to continue anti-rejection meds PO, plan per surgery to clamp for 4 hours, and if residuals are <100mls may DC NG tube and start clears. - continue Zosyn. (2) Fever Comment: - resolved - tylenol prn - continue antibiotics; result of abdominal process. (3) History of renal transplant Comment: -Continue Solumedrol , Cellcept, and Prograf (4) Hypertension Comment: - hx of hypertension on metoprolol 75 mg BID, this was confirmed with his pharmacy - was tachycardic which could have been from beta jessenia withdrawl - he was started on IV BB 08/26 and tacycardia has resolved. Hold PO meds for now and continue metoprolol IV 5 mg Q4 scheduled, starting PO med when able. - hold home norvasc dose. - Hydralyzine prn IV (5) Diabetes mellitus type II, controlled Comment: - insulin management dc'd at patient request...glucose values are generally between 100-150. last HgA1C 5.7 in 2017 (6) DVT prophylaxis Comment: -Will defer with Surgical team as to preference as well Status and Disposition: .inpatient. home when medically stable
[2017-08-28] MEDS ORDERED: HYDROmorphone INJ* 2 MG/ML CARPUJECT SYRINGE IV SLOW PU PRN (11:18)
[2017-08-28] MEDS: Pantoprazole IV* 40 MG IV SCH (20:24)
[2017-08-29] MEDS: Metoprolol Tartrate IV* 1 MG/ML 5 ML VIAL IV SCH ×3 (04:05→12:17)
[2017-08-29] MEDS: NS 0.9% 1000 ML* 1,000 ML IV SCH (04:10)
[2017-08-29] MEDS: Tacrolimus CAP(*) 0.5 MG PO SCH (08:34)
[2017-08-29] MEDS: Mycophenolate Mofetil CAP(*) 250 MG PO SCH (08:34)
[2017-08-29] MEDS: ZOSYN 3.375 GM Q8H per EXTENDED INFUSION IVPB SCH ×2 (08:41)
[2017-08-29] MEDS: methylPREDNISolone SOD 40 MG* 1 ML VIAL IV SCH (09:33)
[2017-08-29 12:17] VITALS: BP 154/70
--- NOTE | 2017-08-29 12:23 | PN ---
Subjective Date of Service: 08/29/17 Interval History: Mr. Alvarado reports feeling very well today and is eager for discharge to home. He is tolerating oral intake and has passes flatus/stool. Family History: Unchanged from Admission Social History: Unchanged from Admission Past Medical History: Unchanged from Admission Objective Active Medications: Al Hydrox/Mg Hydrox/Simethicone (Maalox Plus*) 30 ml PO Q2H PRN Dextrose (D50w Syringe 50 Ml*) 12.5 gm IV PUSH .FOR FS < 60 - SS PRN Hydralazine HCl (Apresoline Iv*) 5 mg IV SLOW PU Q6H PRN Hydromorphone HCl (Dilaudid Inj*) 1 mg IV SLOW PU Q3H PRN Sodium Chloride (Ns 0.9% 1000 Ml*) 1,000 mls @ 50 mls/hr IV PER RATE [facility] Methylprednisolone Sodium Succinate (Solu-Medrol 40 Mg) 20 mg IV Q12H [facility] Metoprolol Tartrate (Lopressor Iv*) 5 mg IV Q4H [facility] Mycophenolate Mofetil (Cellcept Cap(*)) 1,000 mg PO BID [facility] Ondansetron HCl (Zofran 40 Mg Vial*) 4 mg IV Q4HR PRN Pantoprazole Sodium (Protonix Iv*) 40 mg IV Q24H [facility] Prochlorperazine Edisylate (Compazine Inj*) 5 mg IV Q6H PRN Tacrolimus (Prograf Cap(*)) 1 mg PO BID [facility] Vital Signs: Temp Pulse Resp BP Pulse Ox 98.3 F 69 16 154/70 97 08/29/17 11:39 08/29/17 11:39 08/29/17 11:39 08/29/17 11:39 08/29/17 11:39 Oxygen Devices in Use Now: None Appearance: Male sitting up in bed in NAD Eyes: No Scleral Icterus Ears/Nose/Mouth/Throat: Mucous Membranes Moist Neck: Trachea Midline Respiratory: Symmetrical Chest Expansion and Respiratory Effort, Clear to Auscultation Cardiovascular: NL Sounds; No Murmurs; No JVD, No Edema Abdominal: NL Sounds; No Tenderness; No Distention Lymphatic: No Cervical Adenopathy Extremities: No Edema Skin: No Rash or Ulcers, - - Midline abdominal incision without drainage or erythema, ankit well approximated Neurological: Alert and Oriented x 3, NL Muscle Strength and Tone Nutrition: Taking PO's Result Diagrams: 08/28/17 05:36 08/28/17 05:36 Additional Lab and Data: . Microbiology and Other Data: . Assess/Plan/Problems-Billing . Assessment: Mr. Alvarado is a 62 yo man with complex PMHx including Ryan's GN, ROE, pancreatitis, ESRD; s/p kidney transplant in 2014, DM, hx perforated intestine 2012 with colostomy reversal; now admitted with SBO, requiring bowel resection on 08/25/17 for ischemic segment. Case complicated with question of STEMI pre-op , but deemed *NOT* to be true ACS. - Patient Problems (1) Strangulation of intestine Comment: - Tolerating oral intake, passing stool. - s/p resection by general surgery for necrotic bowel. (2) Elevated troponin level Comment: -Likely due to demand ischemia. -Appreciate Dr. Murphy input, recommend follow up outpatient in [address] Norman. (3) Hypertension Comment: - Resume home metoprolol and norvasc (4) Diabetes mellitus type II, controlled Comment: - Diet controlled. (5) History of renal transplant Comment: -Continue Solumedrol , Cellcept, and Prograf (6) DVT prophylaxis Status and Disposition: Inpatient. Discharge to home.
[2017-08-29] MEDS ORDERED: HYDROmorphone INJ* 0.5 MG/0.5 ML SYRINGE IV SLOW PU PRN (14:34)
--- NOTE | 2017-08-30 00:30 | DS ---
CC: Dr. Funk; Dr. Taylor * [facility] MEDICINE DISCHARGE SUMMARY: DATE OF ADMISSION: 08/24/17 DATE OF DISCHARGE: 08/29/17 ATTENDING PHYSICIAN: Dr. José Miguel Gramjao * (dictation provided by Eliane Joyce NP ). PRIMARY DIAGNOSIS: Strangulated bowel with small bowel obstruction, status post bowel resection. SECONDARY DIAGNOSES: 1. 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 2. History of diverticulitis. 3. History of pancreatitis. 4. Hypertension. 5. Benign prostatic hyperplasia. PAST SURGICAL HISTORY: Colectomy in 2011 and renal transplant in 2014. MEDICATIONS AT THE TIME OF DISCHARGE: 1. Metoprolol tartrate 75 mg p.o. b.i.d. 2. CellCept 1000 mg p.o. b.i.d. 3. Aspirin 81 mg p.o. daily. 4. Amlodipine 10 mg p.o. daily. 5. Tamsulosin 0.4 mg p.o. daily. 6. Tacrolimus 5 mg p.o. b.i.d. 7. Simvastatin 5 mg p.o. daily. 8. Pantoprazole 40 mg p.o. q.a.m. 9. Prednisone 5 mg p.o. daily. 10. Hydralazine 50 mg p.o. t.i.d. HOSPITAL COURSE: Mr. Alvarado is a 62-year-old male with a past medical history of renal transplant, perforated diverticulitis with Ren's procedure and subsequent reversal, who presented to the hospital on 08/24/17 with acute onset of abdominal pain and vomiting. Please see the dictated H and P from Dr. Kandace Snyder as well as the consultation from Dr. Montenegro for complete details. In brief in the emergency room, the patient had abdomen and pelvis CT, which showed possible earlier partial small bowel obstruction, chronic pancreatitis and right renal transplant, right iliac fossa. The labs showed a white blood cell count of only 11.3. He was afebrile and heart rate and blood pressure were within normal limits. Mr. Alvarado developed more severe abdominal pain. He was seen shortly after admission by Dr. Montenegro from surgical services, who questioned whether the patient may have adhesions versus ischemic bowel and recommended exploratory laparotomy. The patient was taken to the OR 08/24/17 in the evening and was found to have a necrotic ileum and underwent lysis of adhesions and resection. Mr. Alvarado has done relatively well in the postoperative period and he has made a slow, but steady recovery. He did have a slight increase in his troponin peaking at 0.07. He was seen in consultation by Dr. Butler from Cardiology. She suspected, as did we, that this was related to demand ischemia and that the patient can follow up with his outpatient paste thinner, Dr. Norman, within the next month. The patient has remained chest pain free. On 08/26/17, the patient had some abdominal distention and dyspepsia and a NG tube was placed for 1 L of brown bilious fluid. The NG tube was able to be removed yesterday after the patient had developed flatus and stool. He has now been advanced through a clear liquid diet to a regular diet and is tolerating oral intake well. He has minimal abdominal pain today and continues to have flatus and stool. He is eager for discharge. Mr. Alvarado is medically stable for discharge to home and has been approved for discharge by Dr. Taylor from the surgical team. The patient will be following with Dr. Taylor within the next week. He has been advised to avoid any strenuous activity and lift no more than 10 to 15 pounds. DISPOSITION: To home. DIET: Low fat, low salt. ACTIVITY: No strenuous activity, do not lift more than 10 to 15 pounds. FOLLOWUP PLANS: 1. Please follow up with Dr. Funk within next week. 2. Please follow up with Dr. Taylor within the next week. TIME SPENT: Approximately 60 minutes were spent on the discharge of this patient, more than half the time spent with the patient at the bedside reviewing the events leading up to and during this hospitalization, performing the physical examination and reviewing my plan of care. ELIANE JOYCE NP [id number]/[facility] #: [id number] [place]
== END 2017-08-29 14:20 | disposition home or self-care (01) | DRG 223 ==
LOC: ED 00:12 → SSU 03:34 → ICU 17:21 → SSU 08-25 12:52
PROVIDERS: ADMIT Internal Medicine; ATTEND Internal Medicine
PROC: 0D9670Z Drainage of Stomach with Drainage Device, Via Natural or Artificial Opening (ICD-10-PCS; 2017-08-24)
PROC: 0DBB0ZZ Excision of Ileum, Open Approach (ICD-10-PCS; principal; 2017-08-24 14:10)
DX: K56.2 Volvulus (principal); K55.029 Acute infarction of small intestine, extent unspecified; Z94.0 Kidney transplant status; K86.1 Other chronic pancreatitis; I24.8 Other forms of acute ischemic heart disease; K56.50 Intestinal adhesions [bands], unspecified as to partial versus complete obstruction; I10 Essential (primary) hypertension; N40.0 Benign prostatic hyperplasia without lower urinary tract symptoms; K21.9 Gastro-esophageal reflux disease without esophagitis; K57.90 Diverticulosis of intestine, part unspecified, without perforation or abscess without bleeding; Z86.19 Personal history of other infectious and parasitic diseases; Z87.891 Personal history of nicotine dependence; Z91.041 Radiographic dye allergy status; Z90.49 Acquired absence of other specified parts of digestive tract; Z82.49 Family history of ischemic heart disease and other diseases of the circulatory system; Z80.42 Family history of malignant neoplasm of prostate; Z79.82 Long term (current) use of aspirin; Z79.52 Long term (current) use of systemic steroids; K56.7 Ileus, unspecified; E11.9 Type 2 diabetes mellitus without complications; I08.3 Combined rheumatic disorders of mitral, aortic and tricuspid valves; R50.9 Fever, unspecified; E78.5 Hyperlipidemia, unspecified
CPT/HCPCS: 36415; 71045; 74176; 80048; 80053; 81003; 81015; 82550; 82553; 83605; 83690; 83735; 84100; 84484; 85025; 86140; 87040; 87086; 88307; 93005; 99284; A9270-GY; C1776; J0330; J0360; J0690; J0780; J1100; J1170; J2250; J2270; J2543; J2704; J2920; J3010; J3475; J3490; J7507

== ENCOUNTER 2018-05-26 12:33 | Emergency (ER) | payer BC ==
--- NOTE | 2018-05-26 13:05 | ED ---
Abdominal Pain/Male - HPI Summary HPI Summary: Pt is a 63 y/o male who presents to the ED c/o abdominal pain. 3 days ago he was working outside and suddenly felt something pop. Pt since has had diffuse abdominal pain, N/V/D, and a fever of 102 degrees F. He denies any CP, SOB, back pain, dysuria, or hematuria. Pain is rated a 5/10 in severity. Pt has been taking Tylenol for the fever, which has helped reduce it as per . In August 2017 pt had surgery by Dr. Montenegro for twisted small intestines. Pt also has a hx of perforated bowel, diverticulosis, and GERD. PSHx colostomy and right kidney transplant. He denies the use of blood thinners. - History of Current Complaint Chief Complaint: EDAbdPain Stated Complaint: VOMITING, GASTRO ISSUES,FEVER PER Time Seen by Provider: 05/26/18 12:57 Hx Obtained From: Patient, Family/Outsole Beveler - Onset/Duration: Sudden Onset, Lasting Days - 3, Still Present Timing: Constant Severity Currently: Moderate Pain Intensity: 5 Pain Scale Used: 0-10 Numeric Location: Diffuse Radiates: No Associated Signs And Symptoms: Positive: Fever, Nausea, Vomiting, Diarrhea Similar Episode/Dx As:: hx "twisted small bowel" and perforation - Allergies/Home Medications Allergies/Adverse Reactions: Allergies Allergy/AdvReac Type Severity Reaction Status Date / Time Iodinated Contrast- Oral and AdvReac Severe kidney Verified 05/26/18 12:41 IV Dye failure Home Medications: Home Medications Aspirin EC TAB* [Ecotrin EC Low Dose 81 MG*] 81 mg PO DAILY 05/26/18 [History Confirmed 05/26/18] Metoprolol Tartrate TAB* [Lopressor TAB*] 75 mg PO BID 05/26/18 [History Confirmed 05/26/18] Pantoprazole TAB * [Protonix TAB*] 40 mg PO DAILY 05/26/18 [History Confirmed ] Sod Phos Di, Mcnairy/K Phos Mcnairy [Virt-Phos 250 Neutral 155-852-130 mg] 1 tab PO BID 05/26/18 [History Confirmed 05/26/18] amLODIPine TAB* [Norvasc 5 mg TAB*] 10 mg PO DAILY 05/26/18 [History Confirmed 05/26/18] PMH/Surg Hx/FS Hx/Imm Hx Endocrine/Hematology History: Denies: Hx Anticoagulant Therapy, Hx Blood Disorders, Hx Blood Transfusions, Hx Bone Marrow Disease, Hx Diabetes, Hx Systemic Lupus Erythematosus, Hx Sickle Cell Disease, Hx Thyroid Disease, Hx Anemia, Hx Unexplained Bleeding, Other Endocrine/Hematological Disorders Cardiovascular History: Reports: Hx Hypertension Denies: Hx Aneurysm, Hx Angina, Hx Angioplasty, Hx Auto Implanted Cardiovert Defib, Hx Cardiac Arrest, Hx Cardiomegaly, Hx Congenital Heart Disease, Hx Congestive Heart Failure, Hx Coronary Artery Disease, Hx Deep Vein Thrombosis, Hx Hypercholesterolemia, Hx Hypotension, Hx Myocardial Infarction, Hx Pacemaker/ ICD, Hx Peripheral Vascular Disease, Hx Rheumatic Fever, Hx Syncope, Hx Valvular Heart Disease, Other Cardiovascular Problems/Disorders Respiratory History: Denies: Hx Asthma, Hx Chronic Bronchitis, Hx Chronic Obstructive Pulmonary Disease (COPD), Hx Cystic Fibrosis, Hx Lung Cancer, Hx Pleural Effusion, Hx Pneumonia, Hx Pulmonary Edema, Hx Pulmonary Embolism, Hx Seasonal Allergies, Hx Sleep Apnea, Other Respiratory Problems/Disorders GI History: Reports: Hx Diverticulosis, Hx Gastroesophageal Reflux Disease, Hx Ileostomy - perforated bowel 2012, Other GI Disorders - "twisted small bowel" History: Reports: Hx Acute Renal Failure, Hx Renal Disease, Other Problems /Disorders - kidney transplant right Denies: Hx Benign Prostatic Hyperplasia, Hx Chronic Renal Failure, Hx Dialysis, Hx Kidney Infection, Hx Kidney Stones Musculoskeletal History: Denies: Hx Arthritis, Hx Back Problems, Hx Bursitis, Hx Congenital Bone Abnormalities, Hx Fibromyalgia, Hx Gout, Hx Orthopedic Injury, Hx Osteoporosis, Hx Scoliosis, Hx Tendonitis, Other Musculoskeletal History Sensory History: Denies: Hx Cataracts, Hx Contacts or Glasses - PT WEARS GLASSES, Hx Eye Injury, Hx Eye Prosthesis, Hx Glaucoma, Hx Macular Degeneration, Hx Vision Problem, Hx Deafness, Hx Hearing Aid, Hx Hearing Problem, Other Sensory Impairments Opthamlomology History: Denies: Hx Cataracts, Hx Contacts or Glasses - PT WEARS GLASSES, Hx Eye Injury, Hx Eye Prosthesis, Hx Glaucoma, Hx Macular Degeneration, Hx Vision Problem, Other Sensory Impairments Neurological History: Denies: Hx Dementia, Hx Developmental Delay, Hx Headaches, Hx Migraine, Hx Seizures, Hx Spinal Cord Injury, Hx Transient Ischemic Attacks (TIA), Other Neuro Impairments/Disorders Psychiatric History: Denies: Hx Anxiety, Hx Attention Deficit Hyperactivity Disorder, Hx Eating Disorder, Hx Depression, Hx Panic Disorder, Hx Post Traumatic Stress Disorder, Hx Inpatient Treatment, Hx Community Mental Health Tx, Hx Schizophrenia, Hx Bipolar Disorder, Hx Suicide Attempt, Hx Substance Abuse, Other Psychiatric Issues/Disorders - Cancer History Cancer Type, Location and Year: 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 Hx Chemotherapy: Yes Hx Radiation Therapy: No - Surgical History Surgery Procedure, Year, and Place: colostomy 2011, colostomy reversal March 2012, 2 fistula surgeries Hx Anesthesia Reactions: No - Immunization History Date of Tetanus Vaccine: unk Date of Influenza Vaccine: none Infectious Disease History: No Infectious Disease History: Reports: Hx Clostridium Difficile - 3-4 yrs ago, Hx Shingles - feb 2012 Denies: Hx Hepatitis, Hx Human Immunodeficiency Virus (HIV), Hx Tuberculosis , Traveled Outside the [place] in Last 30 Days - Family History Known Family History: Negative: Diabetes - Social History Alcohol Use: None Hx Substance Use: No Substance Use Type: Reports: None Hx Tobacco Use: Yes Smoking Status (MU): Former Smoker Type: Cigarettes Amount Used/How Often: 1 PPD Length of Time of Smoking/Using Tobacco: 40 YEARS Have You Smoked in the Last Year: No Review of Systems Positive: Fever Negative: Chest Pain Negative: Shortness Of Breath Positive: Abdominal Pain, Vomiting, Diarrhea, Nausea Negative: dysuria, hematuria Negative: Myalgia - back All Other Systems Reviewed And Are Negative: Yes Physical Exam - Summary Physical Exam Summary: Appearance: well appearing, no pain distress Skin: warm, dry, reflects adequate perfusion, fistula in left forearm Head/face: normal Eyes: EOMI, ABDIAS ENT: mucous membranes moist Neck: supple, non-tender Respiratory: CTA, breath sounds present Cardiovascular: RRR, pulses symmetrical Abdomen: RLQ tenderness, soft, RLQ, LLQ, and midline surgical scars, no swelling Bowel Sounds: present Musculoskeletal: normal, strength/ROM intact Neuro: normal, sensory motor intact, A&Ox3 Triage Information Reviewed: Yes Vital Signs On Initial Exam: Initial Vitals Temp Pulse Resp BP Pulse Ox 97.5 F 85 18 129/64 97 05/26/18 12:41 05/26/18 12:41 05/26/18 12:41 05/26/18 12:41 05/26/18 12:41 Vital Signs Reviewed: Yes Diagnostics - Vital Signs Vital Signs Temp Pulse Resp BP Pulse Ox 05/26/18 12:41 97.5 F 85 18 129/64 97 - Laboratory Result Diagrams: 05/26/18 13:16 05/26/18 13:16 Lab Statement: Any lab studies that have been ordered have been reviewed, and results considered in the medical decision making process. - CT CT A/P CT Interpretation Completed By: Radiologist Summary of CT Findings: 1. RIGHT RENAL ALLOGRAFT THAT IS ENLARGED COMPARED TO AUGUST 24, 2017 SUGGESTIVE OF EDEMA. 2. HEPATOSPLENOMEGALY. 3. FINDINGS SUGGESTIVE OF CHRONIC PANCREATITIS. 4. ENLARGED PROSTATE. ED physician reviewed radiology report. - EKG 13:04 Cardiac Rate: NL - 84 bpm EKG Rhythm: Sinus Rhythm ST Segment: Normal Summary of EKG Findings: Nl axis, nl intervals Re-Evaluation - Re-Evaluation First Eval Re-Evaluation Time: 14:10 Change: Improved Comment: Pt feels a little better. Abdominal Pain Male Course/Dx - Course Course Of Treatment: Nurse's notes reviewed. Patient with complicated past medical history to include renal transplant with transplant kidney in the right lower quadrant/pelvis. Patient without direct trauma to the right lower quadrant however felt a pop on Saturday and since then has had fever, shakes and chills. He is developed fever here in the emergency department. His CT scan shows edema of the transplanted kidney and her is evidence of infection on the urinalysis. He also has raised his creatinine from a baseline less than 1- 2.35. Concern obviously would be for injection of his transplant. He received 2 L IV fluids and IV Rocephin here. He also was treated for his fever. We had paged out for transplant team at [facility] and received a call back from Dr. Reilly the director of public relations who accepted the transfer to [facility]. Patient is able to urinate without issue having gone just prior to arrival and then a good amount here in the ER. A bladder scan will be done rule out retention prior to transfer. - Diagnoses Differential Diagnosis/HQI/PQRI: Bowel Obstruction, Diverticulitis, Ureteral Stone, Urinary Tract Infection, Other - Acute rejection Provider Diagnoses: Acute rejection of kidney transplant, Acute renal failure, Renal disease with edema, Pyelonephritis - Provider Notifications Discussed Care Of Patient With: Tiffanie Reilly Time Discussed With Above Provider: 16:14 Instructed by Provider To: Admit As Inpatient - Dr. Reilly at [facility] accepts pt for admission. - Critical Care Time Critical Care Time: 30-74 min - CCT is EXLUSIVE of separately billable procedures. Discharge - Sign-Out/Discharge Documenting (check all that apply): Patient Departure - Transfer Patient Received Moderate/Deep Sedation with Procedure: No - Discharge Plan Condition: Stable Disposition: TRANS HIGHER LVL OF CARE FAC Referrals: Jaimie Broussard MD [Primary Care Provider] - - Billing Disposition and Condition Condition: STABLE Disposition: Trans Higher Lvl of Care Fac - Attestation Statements Document Initiated by Scribe: Yes Documenting Scribe: Chelsi Braden Provider For Whom Scribe is Documenting (Include Credential): Ha Abraham MD Scribe Attestation: Chelsi Luna, scribed for Ha Abraham MD on 05/26/18 at 1627. Scribe Documentation Reviewed: Yes Provider Attestation: The documentation as recorded by the Chelsi foy accurately reflects the service I personally performed and the decisions made by , Ha Abraham MD Status of Scribe Document: Viewed
[2018-05-26] MEDS ORDERED: Morphine 4 MG/ML VIAL (1 ml) 4 MG/ML VIAL IV ONE (13:09)
[2018-05-26] MEDS ORDERED: Ondansetron INJ* 2 MG/ML VIAL IV ONE (13:09)
[2018-05-26] MEDS ORDERED: NS 0.9% 1000 ML** 1,000 ML IV ONE ×2 (13:09→13:58)
--- OUTSIDE RECORDS SUMMARY | 2018-05-26 13:21 | XMS REPORT | Continuity of Care Document ---
:1955 External Reference #:[id number] Author Name Jaimie Broussard MD Address [facility] [place] [address] Care Team Providers Name Role Phone Jaimie Broussard MD FACP Care Team Information Machine Finisher Unavailable Jaimie Broussard MD FACP Primary Care Physician Unavailable Payers Date Identification Numbers Payment Provider Subscriber Effective: 2017 Policy Number: [id number] Of LINDA Zaria Matthew PayID: [id number] [address] [address] [place] [address] Advance Directives Description No Information Available Problems Date Description Provider Status Onset: 01/16/2018 Raised prostate specific antigen Jaimie Broussard MD Active Onset: 01/16/2018 Pure hypercholesterolemia Jaimie Broussard MD Active Onset: 01/16/2018 Essential hypertension Jaimie Broussard MD Active Onset: 01/16/2018 Transplant of kidney Jaimie Broussard MD Active Family History Date Family Member(s) Observation Comments General Prostate Cancer Father, Brothers, Uncles, Cousins Siblings 2 2 Brothers alive, 2 Brothers passed Social History Type Date Description Comments Sex Unknown Marital Status Significant Other Work Status 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 [employer] Tobacco Use Start: Unknown End: Patient is a former Quit 10 years ago Unknown smoker Exercise Type/Frequency Exercises regularly Exercise Limitations Joint Swelling Exercise Limitations Muscle Pain Guns in Home Yes, Not Locked Up Currently Active Patient is currently sexually active Allergies, Adverse Reactions, Alerts Description No Known Drug Allergies Medications Medication Date Status Form Strength Qnty SIG Indications Ordering Provider Prevnar 13 03/20 Active Suspension 1unit administer half Z94.0 Etienne /2019 s a milliliters A Bobo, intramuscularly one time for inactivated vaccination to prevent pneumococcal infection Shingrix 03/20 Active Suspension 50mcg/0.5 1unit one Z94.0 Rec ML s intramuscular A Wattoo, dose now and MD repeat 2nd dose after 2-6 months. Prograf 03/04 Active Capsules 1mg twice a day Z94.0 Unknown Prednisone 03/04 Active Solution 5mg/5ML Once in the am Z94.0 Unknown Cellcept 03/04 Active Capsules 250mg 4 In the am, 4 Z94.0 Unknown in the pm Amlodipine 03/04 Active Tablets 10mg once in am I10 Unknown Besylate /2005 Aspirin 81 03/04 Active Chewtabs 81mg once in the am Z94.0 Unknown Low Dose /2005 E78.0 Hydralazine HCL 03/04/2005 Active Tablets 50mg 3 times a day I10 Unknown Metoprolol 03/04/2005 Active Tablets 25mg 3 pills in the I10 Unknown Tartrate am Pantoprazole 03/04/2005 Active Solution 40mg Once in the am Z94.0 Ame [place] Rec Jhony Hebert MD Tamsulosin HCL 03/04/2005 Active Capsules 0.4mg Once in th pm N40.1 Lorena Funk MD Simvastatin 03/04/2005 Active Tablets 5mg 30 Take 1 tablet by Z94.0 Etienne A ta mouth daily in MD Bobo bs the evening for hyperlipidemia Virt-Phos 250 03/04/2005 Active Tablets 155-85 One tab - 2 Z94.0 Unknown Neutral 2-130m times a day g Cholestyramine 03/04/2005 Active Powder 4GM/Do When needed, Z94.0 Blessing Saleh se Once or twice a , harshad Carrillo MD E78.0 Vitamins/Minerals 03/04/2005 Active Tablets Once Z94.0 Unknown Immunizations CPT Code Status Date Vaccine Lot # [id number] Given 04/17/2018 Tdap-Tetanus, Diphtheria Toxoids/Acellular [id number] Pertussis Vaccine 7+ [id number] Given 03/20/2018 Influenza Vaccine Quadrivalent Preser/Antibiotic [id number] Free Im Use Vital Signs Date Vital Result Comment 05/02/2018 10:23am Body Temperature 97.8 F O2 % BldC Oximetry 97 % Heart Rate 76 /min BP Systolic 130 mmHg BP Diastolic 70 mmHg Weight 179.00 lb 04/30/2018 3:17pm Body Temperature 98.8 F O2 % BldC Oximetry 98 % Heart Rate 72 /min BP Systolic 130 mmHg BP Diastolic 60 mmHg 02/13/2018 10:52am Heart Rate 70 /min BP Systolic 140 mmHg BP Diastolic 65 mmHg 01/16/2018 3:03pm Body Temperature 99.1 F O2 % BldC Oximetry 98 % Heart Rate 77 /min BP Systolic 140 mmHg BP Diastolic 60 mmHg BMI (Body Mass Index) 25.6 kg/m2 Weight 181.00 lb Height 70.50 inches 5'10.50" Results Test Date Facility Test Result H/L Range Note Rapid Influenza 05/01/2018 [facility] Influenza A NEGATIVE Negative 1 A & [place] [address] Molecular [phone] Influenza B Molecular NEGATIVE Negative CBC Auto Diff 04/30/2018 [facility] White Blood 4.0 10^3/uL N 3.5-10.8 [place] [address] Count [phone] Red Blood Count 4.83 10^6/uL N 4.00-5.40 Hemoglobin 14.6 g/dL N 14.0-18.0 Hematocrit 45 % N 42-52 Mean Corpuscular Volume 93 fL N 80-94 Mean Corpuscular Hemoglobin 30 pg N 27-31 Mean Corpuscular HGB Conc 33 g/dL N 31-36 Red Cell Distribution Width 15 % N 10.5-15 Platelet Count 193 10^3/uL N 150-450 Mean Platelet Volume 8.8 fL N 7.4-10.4 Abs Neutrophils 2.8 10^3/uL N 1.5-7.7 Abs Lymphocytes 0.5 10^3/uL Low 1.0-4.8 Abs Monocytes 0.6 10^3/uL N 0-0.8 Abs Eosinophils 0 10^3/uL N 0-0.6 Abs Basophils 0 10^3/uL N 0-0.2 Abs Nucleated RBC 0 10^3/uL Granulocyte % 70.8 % Lymphocyte % 11.8 % Monocyte % 16.2 % Eosinophil % 0.7 % Basophil % 0.5 % Nucleated Red Blood Cells % 0.2 Renal Function Panel 04/30/2018 [facility] Sodium 142 mmol/L N 135-145 [place] [address] [phone] Potassium 4.0 mmol/L N 3.5-5.0 Chloride 106 mmol/L N 101-111 Co2 Carbon Dioxide 29 mmol/L N 22-32 Anion Gap 7 mmol/L N 2-11 Glucose 115 mg/dL High 70-100 Blood Urea Nitrogen 16 mg/dL N 6-24 Creatinine 0.94 mg/dL N 0.67-1.17 BUN/Creatinine Ratio 17.0 N 8-20 Calcium 10.2 mg/dL N 8.6-10.3 Phosphorus 3.4 mg/dL N 2.5-5.0 Albumin 4.4 g/dL N 3.2-5.2 Egfr Non- 81.1 >60 Egfr 98.1 >60 2 Laboratory test 04/30/2018 [facility] Influenza A & B SEE RESULT 3, 4 [place] [address] Request BELOW [phone] Xray 04/30/2018 [facility] Chest, 2 Views [place] [address] [phone] Laboratory test 03/05/2018 [facility] PSA Diagnostic 9.521 ng/ mL High 0-4. 5 [place] [address] 000 [phone] Liver Function 03/05/2018 [facility] Total Protein 6.4 g/dL N 6.4- [place] [address] 8.9 [phone] Albumin 4.1 g/dL N 3.2-5.2 Globulin 2.3 g/dL N 2-4 Albumin/Globulin Ratio 1.8 N 1-3 Total Bilirubin 0.60 mg/dL N 0.2-1.0 Direct Bilirubin 0.10 mg/dL N 0.03-0.18 Indirect Bilirubin 0.5 mg/dL N 0.3-1.0 Alkaline Phosphatase 94 U/L N 34-104 Alt 29 U/L N 7-52 Ast 22 U/L N 13-39 Lipid Profile 03/05/2018 [facility] Triglycerides 151 mg/dL High <150 6 (Trig/Chol/HDL) [place] [address] [phone] Cholesterol 125 mg/dL <200 7 HDL Cholesterol 36.9 mg/dL Low >40 8 LDL Cholesterol 58 mg/dL <100 9 Laboratory test 03/05/2018 [facility] Creatine 70 U/L N 10- 223 [place] [address] Kinase(CK) [phone] Order 02/28/2018 [facility] Echocardiogram LVH,Mil [address] [place] [address] MR [phone] Laboratory test 01/28/2018 [facility] PSA Diagnostic 10.280 High 0-4.000 10 [place] [address] ng/mL [phone] Basic Metabolic 10/09/2017 [facility] Sodium 144 N 135-145 [place] [address] mmol/L [phone] Potassium 3.8 mmol/L N 3.5-5.0 Chloride 110 mmol/L N 101-111 Co2 Carbon Dioxide 27 mmol/L N 22-32 Anion Gap 7 mmol/L N 2-11 Glucose 119 mg/dL High 70-100 Blood Urea Nitrogen 14 mg/dL N 6-24 Creatinine 0.85 mg/dL N 0.67-1.17 BUN/Creatinine Ratio 16.5 N 8-20 Calcium 10.1 mg/dL N 8.6-10.3 Egfr Non- 91.3 >60 Egfr 110.5 >60 11 CBC Auto Diff 10/09/2017 [facility] White Blood 4.6 10^3/uL N 3.5-10.8 [place] [address] Count [phone] Red Blood Count 4.18 10^6/uL N 4.00-5.40 Hemoglobin 13.1 g/dL Low 14.0-18.0 Hematocrit 40 % Low 42-52 Mean Corpuscular Volume 96 fL High 80-94 Mean Corpuscular Hemoglobin 31 pg N 27-31 Mean Corpuscular HGB Conc 33 g/dL N 31-36 Red Cell Distribution Width 14 % N 10.5-15 Platelet Count 246 10^3/uL N 150-450 Mean Platelet Volume 8.6 um3 N 7.4-10.4 Abs Neutrophils 3.5 10^3/uL N 1.5-7.7 Abs Lymphocytes 0.5 10^3/uL Low 1.0-4.8 Abs Monocytes 0.5 10^3/uL N 0-0.8 Abs Eosinophils 0 10^3/uL N 0-0.6 Abs Basophils 0 10^3/uL N 0-0.2 Abs Nucleated RBC 0 10^3/uL Granulocyte % 75.8 % N 38-83 Lymphocyte % 10.9 % Low 25-47 Monocyte % 11.3 % High 0-7 Eosinophil % 1.0 % N 0-6 Basophil % 1.0 % N 0-2 Nucleated Red Blood Cells % 0.1 Laboratory test finding 10/09/2017 [facility] Tacrolimus 6.2 [address] [place] [address] [phone] Phone Engineer: [id number] 2 Because ethnic data is not always readily available, this report includes an eGFR for both -Americans and non- Americans. The National Kidney Disease Education Program (NKDEP) does not endorse the use of the MDRD equation for patients that are not between the ages of 18 and 70, are , have extremes of body size, muscle mass, or nutritional status, or are non- or non-. According to the National Kidney Foundation, irrespective of diagnosis, the stage of the disease is based on the level of kidney function: Stage Description GFR(mL/min/1.73 m(2)) 1 Kidney damage with normal or decreased GFR 90 2 Kidney damage with mild decrease in GFR 60-89 3 Moderate decrease in GFR 30-59 4 Severe decrease in GFR 15-29 5 Kidney failure <15 (or dialysis) 3 [id number] 4 SEE RESULT BELOW Name: YARELIS MATTHEW : [address]: Jaimie Broussard MD Acct: [id number] Unit: [id number] AGE: 63 Location: [facility] Re04/30/18 SEX: M Status: REG REF SPEC: [id number] SNEHAL: 04/30/18-[address] [facility] [address]: Jaimie Broussard MD REQ: [id number] RECD: 05/01/18 STATUS: COMP _ SOURCE: [email or web address] SPDESC: ORDERED: Flu A B Request COMMENTS: [id number] Procedure Result Reported Site Rapid Influenza A B Request Final 05/01/18- 1200 ML Specimen received for Influenza A/B Molecular testing * ML - Main Lab . END OF REPORT DEPARTMENT OF PATHOLOGY, [address] [place] [address] Calvin Cool M.D. Director [facility] # [id number] 5 Serum levels of PSA measured using the [employer] DXI Hybritech immunoassay should not be interpreted as absolute evidence of the presence or absence of disease. The PSA value should be used in conjunction with other pertinent clinical diagnostic procedures. The values obtained with different assay methods or kits cannot be used interchangeably. 6 Desirable: <150 Borderline High: 150-199 High: 200-499 Very High: >500 7 Desirable: <200 Borderline High: 200-239 High: >239 8 Low: <40 Desirable: 40-60 High: >60 9 Desirable: <100 Near Optimal: 100-129 Borderline High: 130-159 High: 160-189 Very High: >189 10 Serum levels of PSA measured using the [employer] DXI Hybritech immunoassay should not be interpreted as absolute evidence of the presence or absence of disease. The PSA value should be used in conjunction with other pertinent clinical diagnostic procedures. The values obtained with different assay methods or kits cannot be used interchangeably. 11 Because ethnic data is not always readily available, this report includes an eGFR for both -Americans and non- Americans. The National Kidney Disease Education Program (NKDEP) does not endorse the use of the MDRD equation for patients that are not between the ages of 18 and 70, are , have extremes of body size, muscle mass, or nutritional status, or are non- or non-. According to the National Kidney Foundation, irrespective of diagnosis, the stage of the disease is based on the level of kidney function: Stage Description GFR(mL/min/1.73 m(2)) 1 Kidney damage with normal or decreased GFR 90 2 Kidney damage with mild decrease in GFR 60-89 3 Moderate decrease in GFR 30-59 4 Severe decrease in GFR 15-29 5 Kidney failure <15 (or dialysis) 12 Tacrolimus, B 6.2 ng/mL REFERENCE VALUE 5.0-15.0 (Trough) ADDITIONAL INFORMATION Target steady-state trough concentrations vary depending on the type of transplant, concomitant immunosuppression, clinical/institutional protocols, and time post-transplant. Results should be interpreted in conjunction with this clinical information and any physical signs/symptoms of rejection/toxicity. Testing performed by Liquid Chromatography-Tandem Mass Spectrometry (LC-MS/MS). This test was developed and its performance characteristics determined by [facility] in a manner consistent with CLIA requirements. This test has not been cleared or approved by the U.S. Food and Drug Administration. Test Performed by: [facility] [address] [place] [address] Procedures Date Code Description Status 06/24/2017 [id number] Colonoscopy Completed Encounters Type Date Location Provider Dx Diagnosis Office Visit 05/02/2018 Main Office Nany Gómez18.9 Pneumonia, 10:20a unspecified organism Office Visit 04/30/2018 Main Office Nany Gómez18.9 Pneumonia, 3:20p unspecified organism Z94.0 Kidney transplant status Office Visit 03/20/2018 11:40a Main Office Jaimie Broussard R97.20 Elevated prostate MD specific antigen [PSA] R01.1 Cardiac murmur, unspecified Z94.0 Kidney transplant status Z23 Encounter for immunization Office Visit 02/13/2018 10:20a Main Office Jaimie Broussard R97.20 Elevated prostate MD specific antigen [PSA] R01.1 Cardiac murmur, unspecified Z94.0 Kidney transplant status Office Visit 01/16/2018 2:40p Main Office Jaimie Browning94.0 Kidney transplant MD Bobo status I10 Essential (primary) hypertension R97.20 Elevated prostate specific antigen [PSA] L60.0 Ingrowing nail R01.1 Cardiac murmur, unspecified Z00.01 Encounter for general adult medical exam w abnormal findings Plan of Treatment Future Appointment(s):05/12/2018 9:40 am - Jaimie Broussard MD at Main Wlqzoh1101/20/2019 10:00 am - Jaimie Broussard MD at Main Hkgauk3705/02/2018 - Jaimie Broussard MDJ18.9 Pneumonia, unspecified organismComments:Almost resolved.Clinically stable and improving. Breathing exercises advised.
--- OUTSIDE RECORDS SUMMARY | 2018-05-26 13:21 | XMS REPORT | Continuity of Care Document ---
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 [employer] Tobacco Use Start: Unknown End: Patient is [...] CPT Code Status Date Vaccine Lot # [id number] Given 04/17/2018 Tdap-Tetanus, Diphtheria Toxoids/Acellular [id number] Pertussis Vaccine 7+ [id number] Given 03/20/2018 Influenza Vaccine Quadrivalent Preser/Antibiotic [id number] Free Im Use Vital Signs Date Vital Result Comment 04/30/2018 3:17pm Body Temperature 98.8 F O2 [...] Date Facility Test Result H/L Range Note Laboratory test 04/30/2018 [facility] Influenza A & B <pending> [place] [address] Request [phone] Laboratory test 03/05/2018 [facility] PSA Diagnostic 9.521 ng/ mL High 0-4.000 1 [place] [address] [phone] Liver Function 03/05/2018 [facility] Total Protein 6.4 g/dL N 6.4-8.9 [place] [address] [phone] Albumin 4.1 g/dL N 3.2-5.2 Globulin 2.3 g/dL N 2-4 Albumin/Globulin Ratio 1.8 N 1-3 Total Bilirubin 0.60 mg/dL N 0.2-1.0 Direct Bilirubin 0.10 mg/dL N 0.03-0.18 Indirect Bilirubin 0.5 mg/dL N 0.3-1.0 Alkaline Phosphatase 94 U/L N 34-104 Alt 29 U/L N 7-52 Ast 22 U/L N 13-39 Lipid Profile 03/05/2018 [facility] Triglycerides 151 mg/dL High <150 2 (Trig/Chol/HDL) [place], [place] [id number] [phone] Cholesterol 125 mg/dL <200 3 HDL Cholesterol 36.9 mg/dL Low >40 4 LDL Cholesterol 58 mg/dL <100 5 Laboratory test 03/05/2018 [facility] Creatine 70 U/L N 10- 223 [place] [address] Kinase(CK) [phone] Order 02/28/2018 [facility] Echocardiogram LVH,Mil [address] [place] [address] MR [phone] Laboratory test 01/28/2018 [facility] PSA Diagnostic 10.280 High 0-4.000 6 [place] [address] ng/mL [phone] Basic Metabolic 10/09/2017 [facility] Sodium 144 N 135-145 [place] [address] mmol/L [phone] Potassium 3.8 mmol/L N 3.5-5.0 Chloride 110 mmol/L N 101-111 Co2 Carbon Dioxide 27 mmol/L N 22-32 Anion Gap 7 mmol/L N 2-11 Glucose 119 mg/dL High 70-100 Blood Urea Nitrogen 14 mg/dL N 6-24 Creatinine 0.85 mg/dL N 0.67-1.17 BUN/Creatinine Ratio 16.5 N 8-20 Calcium 10.1 mg/dL N 8.6-10.3 Egfr Non- 91.3 >60 Egfr 110.5 >60 7 CBC Auto Diff 10/09/2017 [facility] White Blood 4.6 10^3/uL N 3.5-10.8 [place] [address] Count [phone] Red Blood Count 4.18 10^6/uL N 4.00-5.40 [...] Cells % 0.1 Laboratory test finding 10/09/2017 [facility] Tacrolimus 6.2 [address] [place] [id number] [phone] 1 Serum levels of PSA measured using the [employer] DXI Hybritech immunoassay should not be interpreted as absolute evidence of the presence or absence of disease. The PSA value should be used in conjunction with other pertinent clinical diagnostic procedures. The values obtained with different assay methods or kits cannot be used interchangeably. 2 Desirable: <150 Borderline High: 150-199 High: 200-499 Very High: >500 3 Desirable: <200 Borderline High: 200-239 High: >239 4 Low: <40 Desirable: 40-60 High: >60 5 Desirable: <100 Near Optimal: 100-129 Borderline High: 130-159 High: 160-189 Very High: >189 6 Serum levels of PSA measured using the [employer] DXI Hybritech immunoassay should not be interpreted as absolute evidence of the presence or absence of disease. The PSA value should be used in conjunction with other pertinent clinical diagnostic procedures. The values obtained with different assay methods or kits cannot be used interchangeably. 7 Because ethnic data is not always readily [...] 15-29 5 Kidney failure <15 (or dialysis) 8 Tacrolimus, B 6.2 ng/mL REFERENCE VALUE 5.0-15.0 (Trough) ADDITIONAL INFORMATION Target steady-state trough concentrations vary depending on the type of transplant, concomitant immunosuppression, clinical/institutional protocols, and time post-transplant. Results should be interpreted in conjunction with this clinical information and any physical signs/symptoms of rejection/toxicity. Testing performed by Liquid Chromatography-Tandem Mass Spectrometry (LC-MS/MS). This test was developed and its performance characteristics determined by [facility] in a manner consistent with CLIA requirements. This test has not been cleared or approved by the U.S. Food and Drug Administration. Test Performed by: [facility] [address] [place] [address] Procedures Date Code Description Status 06/24/2017 [id number] Colonoscopy Completed Encounters Type Date Location Provider Dx Diagnosis Office Visit 04/30/2018 Main Office Jaimie Broussard, J18.9 Pneumonia, 3:20p unspecified organism Z94.0 Kidney transplant status Office Visit 03/20/2018 11:40a Main Office Jaimie Broussard, R97.20 Elevated prostate MD specific antigen [PSA] [...] w abnormal findings Plan of Treatment Future Appointment(s):05/02/2018 10:20 am - Jaimie Broussard MD at Main Elxoyd6401/20/2019 10:00 am - Jaimie Broussard MD at Main Qjztdc0204/30/2018 - Jaimie Broussard MDJ18.9 Pneumonia, unspecified organismNew Xrays:Chest, 2 Views, Ordered: 04/30/18Comments:Clinically stable.Lifestyle and dietary modifications advised. All d/w his .Possible viral etiology.Tests recommended further plan of care pending availability of results.Z94.0 Kidney transplant status
--- OUTSIDE RECORDS SUMMARY | 2018-05-26 13:21 | XMS REPORT | Continuity of Care Document ---
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[employer] Tobacco Use Start: Unknown End: Patient is [...] CPT Code Status Date Vaccine Lot # [id number] Given 04/17/2018 Tdap-Tetanus, Diphtheria Toxoids/Acellular [id number] Pertussis Vaccine 7+ 83545 Given 03/20/2018 Influenza Vaccine Quadrivalent Preser/Antibiotic [id number] Free Im Use Vital Signs Date Vital Result Comment 05/20/2018 9:39am Body Temperature 98.7 F O2 % BldC Oximetry 98 % Heart Rate 64 /min BP Systolic 130 mmHg BP Diastolic 75 mmHg 05/02/2018 10:23am Body Temperature 97.8 F O2 [...] Test Result H/L Range Note Laboratory test 05/14/2018 [facility] PSA Diagnostic <pending> [place] [address] [phone] CBC Auto Diff 05/14/2018 [facility] White Blood 5.7 10^3/uL N 3.5-10.8 [place] [address] Count [phone] Red Blood Count 4.64 10^6/uL N 4.00-5.40 Hemoglobin 14.2 g/dL N 14.0-18.0 Hematocrit 43 % N 42-52 Mean Corpuscular Volume 93 fL N 80-94 Mean Corpuscular Hemoglobin 31 pg N 27-31 Mean Corpuscular HGB Conc 33 g/dL N 31-36 Red Cell Distribution Width 15 % N 10.5-15 Platelet Count 199 10^3/uL N 150-450 Mean Platelet Volume 8.7 fL N 7.4-10.4 Abs Neutrophils 4.3 10^3/uL N 1.5-7.7 Abs Lymphocytes 0.5 10^3/uL Low 1.0-4.8 Abs Monocytes 0.7 10^3/uL N 0-0.8 Abs Eosinophils 0.1 10^3/uL N 0-0.6 Abs Basophils 0.1 10^3/uL N 0-0.2 Abs Nucleated RBC 0 10^3/uL Granulocyte % 74.5 % Lymphocyte % 9.1 % Monocyte % 13.0 % Eosinophil % 2.1 % Basophil % 1.3 % Nucleated Red Blood Cells % 0 Basic Metabolic Panel 05/14/2018 [facility] Sodium 141 mmol/L N 135-145 [place] [address] [phone] Potassium 4.3 mmol/L N 3.5-5.0 Chloride 107 mmol/L N 101-111 Co2 Carbon Dioxide 28 mmol/L N 22-32 Anion Gap 6 mmol/L N 2-11 Glucose 105 mg/dL High 70-100 Blood Urea Nitrogen 14 mg/dL N 6-24 Creatinine 1.22 mg/dL High 0.67-1.17 BUN/Creatinine Ratio 11.5 N 8-20 Calcium 9.8 mg/dL N 8.6-10.3 Egfr Non- 60.0 >60 Egfr 72.6 >60 1 Rapid Influenza 05/01/2018 [facility] Influenza A NEGATIVE Negative 2 A & [place] [address] Molecular [phone] Influenza B Molecular NEGATIVE Negative CBC Auto Diff 04/30/2018 [facility] White Blood 4.0 10^3/uL N 3.5-10.8 [place] [address] Count [phone] Red Blood Count 4.83 10^6/uL N 4.00-5.40 [...] Cells % 0.2 Renal Function Panel 04/30/2018 [facility] Sodium 142 mmol/L N 135-145 [place] [address] [phone] Potassium 4.0 mmol/L N 3.5-5.0 Chloride 106 [...] Egfr Non- 81.1 >60 Egfr 98.1 >60 3 Laboratory test 04/30/2018 [facility] Influenza A & B SEE RESULT 4, 5 [place] [address] Request BELOW [phone] Xray 04/30/2018 [facility] Chest, 2 [place] [address] [phone] Laboratory test 03/05/2018 [facility] Creatine 70 U/L N 10-2 [place] [address] Kinase(CK) 23 [phone] Lipid Profile 03/05/2018 [facility] Triglycerides 151 mg/dL High <150 6 (Trig/Chol/HDL) [place] [address] [phone] Cholesterol 125 mg/dL <200 7 HDL Cholesterol 36.9 mg/dL Low >40 8 LDL Cholesterol 58 mg/dL <100 9 Liver Function 03/05/2018 [facility] Total Protein 6.4 g/dL N 6.4-8.9 [place] [address] [phone] Albumin 4.1 g/dL N 3.2-5.2 Globulin 2.3 g/dL N 2-4 Albumin/Globulin Ratio 1.8 N 1-3 Total Bilirubin 0.60 mg/dL N 0.2-1.0 Direct Bilirubin 0.10 mg/dL N 0.03-0.18 Indirect Bilirubin 0.5 mg/dL N 0.3-1.0 Alkaline Phosphatase 94 U/L N 34-104 Alt 29 U/L N 7-52 Ast 22 U/L N 13-39 Laboratory test 03/05/2018 [facility] PSA Diagnostic 9.521 High 0-4.000 10 [place] [address] ng/mL [phone] Order 02/28/2018 [facility] Echocardiogram LVH,Mild [address] [place] [place] [address] [phone] Laboratory test 01/28/2018 [facility] PSA Diagnostic 10.280 High 0-4.000 11 [place] [address] ng/mL [phone] Basic Metabolic 10/09/2017 [facility] Sodium 144 N 135-145 [place] [address] mmol/L [phone] Potassium 3.8 mmol/L N 3.5-5.0 Chloride 110 mmol/L N 101-111 Co2 Carbon Dioxide 27 mmol/L N 22-32 Anion Gap 7 mmol/L N 2-11 Glucose 119 mg/dL High 70-100 Blood Urea Nitrogen 14 mg/dL N 6-24 Creatinine 0.85 mg/dL N 0.67-1.17 BUN/Creatinine Ratio 16.5 N 8-20 Calcium 10.1 mg/dL N 8.6-10.3 Egfr Non- 91.3 >60 Egfr 110.5 >60 12 CBC Auto Diff 10/09/2017 [facility] White Blood 4.6 10^3/uL N 3.5-10.8 [place] [address] Count [phone] Red Blood Count 4.18 10^6/uL N 4.00-5.40 [...] Cells % 0.1 Laboratory test finding 10/09/2017 [facility] Tacrolimus 6.2 [address] [place] [address] [phone] 1 Because ethnic data is not always readily [...] 15-29 5 Kidney failure <15 (or dialysis) 2 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 Technology Administrator: [id number] 3 Because ethnic data is not always readily [...] 15-29 5 Kidney failure <15 (or dialysis) 4 [id number] SEE RESULT BELOW Name: YARELIS MATTHEW : [address]: Jaimie Broussard MD Acct: [id number] Unit: [id number] AGE: 63 Location: [facility] Re04/30/18 SEX: M Status: REG REF SPEC: [id number] SNEHAL: 04/30/18-[address] [facility] [address]: Jaimie Broussard MD REQ: [id number] RECD: 05/01/18 STATUS: COMP _ SOURCE: [facility]: ORDERED: Arlyn La Request COMMENTS: [id number] Procedure Result Reported Site Rapid Influenza A B Request Final 05/01/18- 1200 ML Specimen received for Influenza A/B Molecular testing * ML - Main Lab . END OF REPORT DEPARTMENT OF PATHOLOGY, [address] [place] [address] Calvin Cool M.D. Director [facility] # [id number] Desirable: <150 Borderline High: 150-199 High: 200-499 Very High: >500 7 Desirable: <200 Borderline High: 200-239 High: >239 8 Low: <40 Desirable: 40-60 High: >60 9 Desirable: <100 Near Optimal: 100-129 Borderline High: 130-159 High: 160-189 Very High: >189 10 Serum levels of PSA measured using the [employer] DXI Hybritech immunoassay should not be interpreted as absolute evidence of the presence or absence of disease. The PSA value should be used in conjunction with other pertinent clinical diagnostic procedures. The values obtained with different assay methods or kits cannot be used interchangeably. 11 Serum levels of PSA measured using the [employer] DXI Hybritech immunoassay should not be interpreted as absolute evidence of the presence or absence of disease. The PSA value should be used in conjunction with other pertinent clinical diagnostic procedures. The values obtained with different assay methods or kits cannot be used interchangeably. 12 Because ethnic data is not always readily [...] 15-29 5 Kidney failure <15 (or dialysis) 13 Tacrolimus, B 6.2 ng/mL REFERENCE VALUE 5.0-15.0 (Trough) ADDITIONAL INFORMATION Target steady-state trough concentrations vary depending on the type of transplant, concomitant immunosuppression, clinical/institutional protocols, and time post-transplant. Results should be interpreted in conjunction with this clinical information and any physical signs/symptoms of rejection/toxicity. Testing performed by Liquid Chromatography-Tandem Mass Spectrometry (LC-MS/MS). This test was developed and its performance characteristics determined by [facility] in a manner consistent with CLIA requirements. This test has not been cleared or approved by the U.S. Food and Drug Administration. Test Performed by: [facility] [address] [place] [address] Procedures Date Code Description Status 06/24/2017 [id number] Colonoscopy Completed Encounters Type Date Location Provider Dx Diagnosis Office Visit 05/20/2018 Main Office Jaimie Broussard, R97.20 Elevated prostate 9:40a MD specific antigen [PSA] J18.9 Pneumonia, unspecified organism Office Visit 05/02/2018 10:20a Main Office Jaimie Palencia J18.9 Pneumonia, Bobo, MD unspecified organism Office Visit 04/30/2018 3:20p Main Office Jaimie Palencia J18.9 Pneumonia, MD Bobo unspecified organism Z94.0 Kidney transplant status Office Visit 03/20/2018 11:40a Main Office Jaimie Broussard, R97.20 Elevated prostate MD specific antigen [PSA] R01.1 Cardiac murmur, unspecified Z94.0 Kidney transplant status Z23 Encounter for immunization Office Visit 02/13/2018 10:20a Main Office Jaimie Broussard R97.20 Elevated prostate MD specific antigen [PSA] R01.1 Cardiac murmur, unspecified Z94.0 Kidney transplant status Office Visit 01/16/2018 2:40p Main Office Jaimie Palencia Z94.0 Kidney transplant MD Bobo status I10 Essential (primary) hypertension R97.20 Elevated prostate specific antigen [PSA] L60.0 Ingrowing nail R01.1 Cardiac murmur, unspecified Z00.01 Encounter for general adult medical exam w abnormal findings Plan of Treatment Future Appointment(s):01/20/2019 10:00 am - Jaimie Broussard MD at Main Uxadjg6705/20/2018 - Jaimie Broussard MDR97.20 Elevated prostate specific antigen [PSA]Comments:Advised to consult with urology and follow with them in this regard.He wishes to follow on PSA in summer and arrange for his own appointment with urology in December.Referral:Tono Salinas MD, IqpqcjtM03.9 Pneumonia, unspecified organismComments:Resolved.
[2018-05-26 13:40] LABS: INR 1.05 (0.77-1.02)
[2018-05-26 13:50] LABS: Hematocrit 45 % (36-46); Hemoglobin 14.9 g/dL (14.0-18.0); Mean Corpuscular HGB Conc 33 g/dL (31-36); Mean Corpuscular Hemoglobin 31 pg (27-31); Mean Corpuscular Volume 93 fL (80-94); Red Blood Count 4.87 10^6 /uL (4.18-5.48); Red Cell Distribution Width 16 % (10.5-15); White Blood Count 10.9 10^3/uL (3.5-10.8)
[2018-05-26 13:53] LABS: ALT 17 U/L (7-52); AST 19 U/L (13-39); Albumin 3.7 g/dL (3.2-5.2); Albumin/Globulin Ratio 1.2 (1-3); Alkaline Phosphatase 102 U/L (34-104); Anion Gap 12 mmol/L (2-11); BUN/Creatinine Ratio 17.9 (8-20); Blood Urea Nitrogen 42 mg/dL (6-24); C Reactive Protein 431.09 mg/L (<8.01); CO2 Carbon Dioxide 25 mmol/L (22-32); Calcium 9.6 mg/dL (8.6-10.3); Chloride 98 mmol/L (101-111); EGFR African American 34.1 (>60); EGFR Non-African American 28.2 (>60); Glucose 117 mg/dL (70-100); Potassium 3.8 mmol/L (3.5-5.0); Sodium 135 mmol/L (135-145); Total Protein 6.7 g/dL (6.4-8.9)
[2018-05-26 13:56] LABS: Troponin I 0.28 ng/mL (<0.04)
[2018-05-26] MEDS ORDERED: Acetaminophen TAB* 325 MG PO ONE (15:14)
[2018-05-26] MEDS ORDERED: cefTRIAXone(*) 1 GM in NS 0.9% 50 ML* 50 ML IVPB ONE (15:15)
[2018-05-26 15:28] LABS: Immature Granulocytes 3 % (0-9); Lymphocytes % 2 %; Monocytes % 3 %; Neutrophil % 91 %
[2018-05-26 15:30] LABS: ABS Neutrophils 10.4 10^3/ul (1.5-7.7)
[2018-05-26 15:31] LABS: ABS Eosinophils 0.1 10^3/ul (0-0.6)
[2018-05-26 15:52] LABS: Urine Appearance Cloudy; Urine Bacteria 2+ (Absent); Urine Bilirubin Negative (Negative); Urine Blood 2+ (Negative); Urine Color Yellow; Urine Glucose Negative (Negative); Urine Ketones Negative (Negative); Urine Nitrite Negative (Negative); Urine Protein 2+(100 mg/dL) (Negative); Urine Red Blood Cell 3+(>10/hpf) (Absent); Urine Specific Gravity 1.014 (1.010-1.030); Urine Urobilinogen Negative (Negative); Urine White Blood Cell 3+(>20/hpf) (Absent)
[2018-05-26 16:20] LABS: Mean Platelet Volume 9.3 fL (7.4-10.4); Platelet Count 92 10^3/uL (150-450)
[2018-05-26 17:36] VITALS: BP 169/80
[2018-05-28 16:37] LABS: Tacrolimus 11.7 ng/mL
[2018-05-28 20:28] LABS: Mycophenolic Acid 3.2 mcg/mL (1.0 - 3.5)
--- NOTE | 2018-05-29 07:28 | PN ---
Progress Note - Progress Note Date of Service: 05/26/18 Note: Final urine culture growing >100k e. coli. Pt. was transferred to [facility]. Urine culture faxed.
== END 2018-05-26 17:49 | disposition short-term general hospital (02) ==
LOC: ED 12:33
DX: T86.11 Kidney transplant rejection (principal); N17.9 Acute kidney failure, unspecified; N04.9 Nephrotic syndrome with unspecified morphologic changes; N12 Tubulo-interstitial nephritis, not specified as acute or chronic; R10.9 Unspecified abdominal pain; Z87.891 Personal history of nicotine dependence
CPT/HCPCS: 36415; 74176; 80053; 80197; 80349; 81003; 81015; 83605; 83690; 84484; 85025; 85060; 85610; 86140; 87077; 87086; 87186; 93005; 96361; 96365; 96375; 99284; A9270-GY; G0480; J0696; J2270; J2405